=== PATIENT | female | born 2000 | race Caucasian/White ===

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

== ENCOUNTER 2022-01-06 13:15 | Outpatient (REF) | payer BC, SELFPAY ==
[2022-01-07 15:19] LABS: Chlamydia Result Negative (Negative); GC Result Negative (Negative)
== END 2022-01-06 13:16 | disposition home or self-care (01) ==
LOC: LBN 13:15
PROVIDERS: PCP Nurse Practitioner Family; Visit Provider Nurse Practitioner Women's Health
DX: Z11.3 Encounter for screening for infections with a predominantly sexual mode of transmission (principal)
CPT/HCPCS: 87491; 87591

== ENCOUNTER 2022-01-30 17:01 | Outpatient (REF) | payer BC, SELFPAY | END 2022-01-30 17:02 | disposition home or self-care (01) | LOC: LBN 17:01 | PROVIDERS: Visit Provider Physician Assistant | DX: J02.9 Acute pharyngitis, unspecified (principal) | CPT/HCPCS: U0003; 87070 ==

== ENCOUNTER 2022-02-02 12:39 | Outpatient (REF) | payer BC, SELFPAY ==
[2022-02-04 12:10] LABS: COVID-19 RT-PCR UVMMC Result Negative (Negative)
== END 2022-02-02 12:40 | disposition home or self-care (01) ==
LOC: LBN 12:39
PROVIDERS: Visit Provider Physician Assistant
DX: Z20.822 Contact with and (suspected) exposure to COVID-19 (principal)
CPT/HCPCS: U0003

== ENCOUNTER 2022-09-22 02:44 | Outpatient (CLI) | payer OTHER, SELFPAY ==
[2022-09-22 14:44] LABS: Panorama Kit Sent via Fed Ex
[2022-09-22 15:13] LABS: Abs Immature Grans 0.04 10^3/uL (0.0-0.06); Absolute Basophil Count 0.06 10^3/uL (0.0-0.2); Absolute Lymphocyte Count 2.93 10^3/uL (1.2-3.4); Absolute Monocyte Count 0.54 10^3/uL (0.1-0.8); Basophils % 0.6; HCT 37.6 % (36.0-46.0); HGB 12.5 g/dL (11.2-15.7); Immature Grans % 0.4; Lymphocytes % 29.7; MCH 29.7 pg (27.0-33.0); MCHC 33.2 % (32.0-36.0); MCV 89 fL (80-95); MPV 11.1 fL (8.0-11.0); Monocytes % 5.5; Neutrophils % 60.8; Platelet Count 240 10^3/uL (130-400); RBC 4.21 10^6/uL (3.93-5.22); RDW 12.7 % (11.7-14.6); RDW-SD 41.6 fL; WBC 9.87 10^3/uL (4.4-10.8)
[2022-09-24 10:33] LABS: Hepatitis B Surface Ag Negative (Negative)
[2022-09-24 11:10] LABS: Varicella IgG Antibody Positive (See Note)
[2022-09-24 11:12] LABS: Rubella IgG Ab (UVM) Positive (See Note)
[2022-09-24 11:14] LABS: HIV-1/2 Ag & Ab Screen Negative (Negative)
[2022-09-24 11:40] LABS: Hepatitis C Ab w Rflx HCV PCR Negative (Negative)
[2022-09-26 14:41] LABS: Syphilis IgG w/Reflex Nonreactive (Nonreactive)
== END 2022-09-22 02:45 | disposition home or self-care (01) ==
LOC: LBO 02:44
PROVIDERS: Visit Provider Advanced Practice Midwife
DX: Z34.81 Encounter for supervision of other normal pregnancy, first trimester (principal)
CPT/HCPCS: 36415; 86787; 86803; 86850; 86900; 86901; 87340; 87389; 85025; 86762; 86780

== ENCOUNTER 2022-09-22 15:39 | Outpatient (REF) | payer OTHER, SELFPAY ==
[2022-09-22 19:26] LABS: *AMPHETAMINES SCREEN URINE Negative (Negative); *BARBITURATES SCREEN URINE Negative (Negative); *BENZODIAZEPINES SCREEN URINE Negative (Negative); Cannabinoids THC Positive (Negative); Cocaine Screen,Urine Negative (Negative); METHADONE URINE SCREEN Negative (Negative); OPIATES URINE SCREEN Negative (Negative)
[2022-09-22 19:32] LABS: Tricyclic Antidepressants Negative (Negative)
[2022-09-24 12:10] LABS: Chlamydia Result Negative (Negative); GC Result Negative (Negative)
[2022-10-01 14:21] LABS: Buprenorphine Negative ng/mL (Cutoff: 5.0); Norbuprenorphine Negative ng/mL (Cutoff: 2.5)
== END 2022-09-22 15:40 | disposition home or self-care (01) ==
LOC: LBN 15:39
PROVIDERS: Visit Provider Advanced Practice Midwife
DX: Z34.91 Encounter for supervision of normal pregnancy, unspecified, first trimester (principal); Z3A.10 10 weeks gestation of pregnancy
CPT/HCPCS: 80307; 80348; 87491; 87591; 87086

== ENCOUNTER 2022-11-15 11:50 | Emergency (ER) | payer OTHER, SELFPAY ==
[2022-11-15 11:55] VITALS: BP 104/64; PULSE 66; RESP 22; TEMP 37.1; O2SAT 99
[2022-11-15 13:35] LABS: Bilirubin Negative (Negative); Blood Negative (Negative); Clarity Clear (Clear); Glucose Negative (Negative); Ketones Negative (Negative); Leukocyte Esterase Negative (Negative); Nitrite Negative (Negative); Urobilinogen 0.2 mg/dL (Up to 0.2)
[2022-11-15] MEDS: Famotidine 20 MG/2 ML VIAL IVP (13:41)
[2022-11-15] MEDS: Lactated Ringers 1,000 ML 1000 ML IV (13:41)
[2022-11-15 13:47] LABS: Abs Immature Grans 0.03 10^3/uL (0.0-0.06); Absolute Basophil Count 0.04 10^3/uL (0.0-0.2); Absolute Eosinophil Count 0.06 10^3/uL (0.0-0.7); Absolute Monocyte Count 0.44 10^3/uL (0.1-0.8); Absolute Neutrophil Count 6.99 10^3/uL (1.2-6.7); Basophils % 0.4; Eosinophils % 0.6; HCT 34.5 % (36.0-46.0); HGB 11.7 g/dL (11.2-15.7); Immature Grans % 0.3; Lymphocytes % 24.1; MCH 29.8 pg (27.0-33.0); MCHC 33.9 % (32.0-36.0); MCV 88 fL (80-95); MPV 10.8 fL (8.0-11.0); Monocytes % 4.4; Neutrophils % 70.2; Platelet Count 219 10^3/uL (130-400); RBC 3.92 10^6/uL (3.93-5.22); RDW 12.7 % (11.7-14.6); RDW-SD 40.8 fL; WBC 9.96 10^3/uL (4.4-10.8)
[2022-11-15 14:02] LABS: ALT 31 U/L (14-59); AST 22 U/L (15-37); Albumin 3.3 g/dL (3.4-5.0); Alkaline Phosphatase 51 U/L (46-116); Anion Gap 10.6 mmol/L (3-11); BUN 7 mg/dL (7-18); Bilirubin, Total 0.9 mg/dL (0.2-1.0); CO2 22.4 mmol/L (21.0-32.0); CREATININE 0.4 mg/dL (0.55-1.02); Calcium 8.9 mg/dL (8.5-10.1); Chloride 103 mmol/L (98-107); Estimated GFR 145.22 (mL/min/1.73m2); Glucose 82 mg/dL (74-106); Lipase 21 U/L (16-77); Potassium 3.5 mmol/L (3.5-5.1); Sodium 136 mmol/L (136-145); Total Protein 6.7 g/dL (6.4-8.2)
--- NOTE | 2022-11-15 14:49 | ED.GENADUL_ITS ---
Discharge Plan Disposition Patient Disposition: Home Discharge Details Clinical Impression: Acute epigastric pain Primary Care Provider: None,None ED Provider: Feli Ngo Home Meds and New Rx's Prescriptions: New metronidazole 1 % gel 1 applic topical DAILY Qty: 60 0RF Rx Instructions: 1 applicator nightly Continued prenat.vits,elyse,[id number]-ablj-qqddm Tablet 1 tab PO DAILY albuterol sulfate [Proventil HFA] 90 mcg/actuation HFA aerosol inhaler 2 puff inhalation Q6H PRN (Reason: shortness of breath or wheezing) Qty: 8.5 0RF pantoprazole [Protonix] 40 mg tablet,delayed release (DR/EC) 40 mg PO DAILY Qty: 30 8RF Discontinued metronidazole 500 mg tablet 500 mg PO BID 7 Days Qty: 14 0RF Discharge Instructions Instructions: Abdominal Pain (ED) Additional Instructions: Stop taking the oral Flagyl and switch to vaginal Flagyl for the next 5 days Take Pepcid daily, stay away from spicy and acidic foods for the next several days, this is [id number] Please return earlier should you have new or worsening complaints Discharge Data Discharge Date/Time-TO BE ENTERED AT DEPARTURE: 11/15/22 15:10 Medical Decision Making 22-year-old female presenting with report of epigastric pain, no right upper quadrant tenderness, labs reassuring including lipase heart rate 149, no vaginal bleeding, stable vitals urinalysis within normal limits Patient given dose of Pepcid, her pain has abated completely I suspect she is having side effects from the Flagyl that she is taking, will switch to vaginal Flagyl, I did confirm this is safe for We will discontinue the oral Flagyl and give patient several days of Pepcid She encouraged to follow-up with her primary care physician in 1 to 2 days for reassessment I do not suspect this is a issue, however she is encouraged to return immediately should she have persistent or worsening symptoms She discharged home in stable condition with stable vital HPI General Date/Time Provider Initiated Documentation: 11/15/22 13:05 . HPI Narrative: This 22-year-old female presents 19 weeks with report of epigastric pain epigastric pain that started at work yesterday. She was given Tums by charge nurse states she actually had some mild improvement in pain. She states the next morning she awoke and the pain had returned. She does report that she was started on Flagyl approximately 2 days ago secondary to suspected bacterial vaginosis. She also had spicy food yesterday per patient. She denies any alcohol use. They are only medication aside from the Flagyl as a vitamin per patient. Related Data Home Medications Medication Instructions Recorded Confirmed albuterol sulfate 90 mcg/actuation 2 puff inhalation Q6H PRN 01/30/22 11/15/22 aerosol inhaler (Proventil HFA) shortness of breath or wheezing #8.5 grams prenat.vits,elyse,izd-lzbq-edhyd 1 tab PO DAILY 08/16/22 11/15/22 metronidazole 1 % topical gel 1 applic topical DAILY #60 grams 11/15/22 pantoprazole 40 mg tablet,delayed 40 mg PO DAILY #30 tabs 11/15/22 11/15/22 release (Protonix) Previous Rx's Medication Instructions Recorded albuterol sulfate 90 mcg/actuation 2 puff inhalation Q6H PRN 01/30/22 aerosol inhaler (Proventil HFA) shortness of breath or wheezing #8.5 grams metronidazole 1 % topical gel 1 applic topical DAILY #60 grams 11/15/22 pantoprazole 40 mg tablet,delayed 40 mg PO DAILY #30 tabs 11/15/22 release (Protonix) Allergies Allergy/AdvReac Type Severity Reaction Status Date / Time poison chidi extract Allergy Severe Topical Verified 11/15/22 12:00 Irritation sodium sulfite Allergy Intermediate Verified 11/15/22 12:00 General Stated Complaint: GenMedical JAIDA: 3 PFSH All Active Problems (Updated 11/15/22 @ 14:31 by DEEJAY Das) Acute epigastric pain (Acute) [place] teeth extracted (Acute) (Acute) Cannabis use disorder, moderate, dependence (Acute) Anxiety (Chronic) Dyslexia (Acute 02/18/15) HAS IEP Medical History (Updated 11/15/22 @ 14:31 by DEEJAY Das) Depression Dyslexia Family History (Updated 09/22/22 @ 13:28 by Valerie Maria CNM) Mother Epilepsy Maternal Uncle Vasculitis Brother Vasculitis Social History Smoking/Tobacco Use Status: Never Smoking risk assessment performed?: Yes Pets and animals: Yes Pets and animals: cat(s) and dog(s) Sexually active: No Current gender identity: female Female Reproductive History Menstrual Age of Menarche: 15 control method: none History History 1 Para 0 Hx # Term Pregnancies 0 Multiple births 0 Hx # Pregnancies 0 Ectopic pregnancies 0 AB induced 0 Hx Number of Living Children 0 AB spontaneous 0 Exam Narrative Exam Narrative: This 22-year-old female presents alert, oriented, no acute distress, no scleral icterus, lungs clear to auscultation, cardiac rate rhythm regular, mild epigastric tenderness, no right upper quadrant tenderness, no rebound or guarding, no skin discoloration, no lower abdominal tenderness, alert and oriented x4, no peripheral edema, neurovascularly intact Course Vital Signs Vital signs: Vital Signs Temperature 37.1 C 11/15/22 11:55 Pulse 66 11/15/22 11:55 Respiratory Rate 22 11/15/22 11:55 Blood Pressure 104/64 11/15/22 11:55 Pulse Oximetry 99 11/15/22 11:55 Temperature 37.1 C 11/15/22 11:55 Temperature Source Oral 11/15/22 11:55 Pulse 66 11/15/22 11:55 Respiratory Rate 22 11/15/22 11:55 Respiratory Effort Normal 11/15/22 12:01 Blood Pressure 104/64 11/15/22 11:55 Blood Pressure Position Sitting 11/15/22 11:55 Pulse Oximetry 99 11/15/22 11:55 Oxygen Delivery Method Room Air 11/15/22 11:55 Oxygen Flow Rate 0 11/15/22 11:55 Pain Level 7 11/15/22 11:55 Lab/Test Results Lab/Test Results: Laboratory Tests Range/Units 11/15/22 11/15/22 11/15/22 12:59 13:40 13:40 WBC (4.4-10.8) 10^3/uL 9.96 RBC (3.93-5.22) 10^6/uL 3.92 L Hgb (11.2-15.7) g/dL 11.7 Hct (36.0-46.0) % 34.5 L MCV (80-95) fL 88 MCH (27.0-33.0) pg 29.8 MCHC (32.0-36.0) % 33.9 RDW (11.7-14.6) % 12.7 Plt Count (130-400) 10^3/uL 219 MPV (8.0-11.0) fL 10.8 Immature Gran % 0.3 Neutrophils % 70.2 Lymphocytes % 24.1 Monocytes % 4.4 Eosinophils % 0.6 Basophils % 0.4 Nucleated RBC % (0.0-0.3) % 0.0 Absolute Neutrophils (1.2-6.7) 10^3/uL 6.99 H Absolute Lymphocytes (1.2-3.4) 10^3/uL 2.40 Absolute Monocytes (0.1-0.8) 10^3/uL 0.44 Absolute Eosinophils (0.0-0.7) 10^3/uL 0.06 Absolute Basophils (0.0-0.2) 10^3/uL 0.04 Sodium (136-145) mmol/L 136 Potassium (3.5-5.1) mmol/L 3.5 Chloride (98-107) mmol/L 103 Carbon Dioxide (21.0-32.0) mmol/L 22.4 Anion Gap (3-11) mmol/L 10.6 BUN (7-18) mg/dL 7 Creatinine (0.55-1.02) mg/dL 0.4 L Est GFR (CKD-EPI 2020) (mL/min/1.73m2) 145.22 Glucose (74-106) mg/dL 82 Calcium (8.5-10.1) mg/dL 8.9 Total Bilirubin (0.2-1.0) mg/dL 0.9 AST (15-37) U/L 22 ALT (14-59) U/L 31 Alkaline Phosphatase (46-116) U/L 51 Total Protein (6.4-8.2) g/dL 6.7 Albumin (3.4-5.0) g/dL 3.3 L Lipase (16-77) U/L 21 Urine Color (Yellow) Yellow Urine Clarity (Clear) Clear Urine pH (5-8) 6.0 Ur Specific [place] (1.005-1.025) 1.020 Urine Protein (Negative) mg/dL Negative Urine Ketones (Negative) mg/dL Negative Urine Blood (Negative) Negative Urine Nitrite (Negative) Negative Urine Bilirubin (Negative) Negative Urine Urobilinogen (Up to 0.2) mg/dL 0.2 Ur Leukocyte Esterase (Negative) Negative Urine Glucose (Negative) mg/dL Negative
== END 2022-11-15 15:10 | disposition home or self-care (01) ==
PROVIDERS: Emergency Provider Physician Assistant
DX: O26.893 Other specified pregnancy related conditions, third trimester (principal); R10.13 Epigastric pain; Z3A.19 19 weeks gestation of pregnancy
CPT/HCPCS: 80053; 83690; 96360; 96361; 99284; 81003; 85025; 99283

== ENCOUNTER → 2022-11-17 01:54 | Outpatient (CLI) | payer OTHER, SELFPAY ==
--- NOTE | 2022-11-17 06:45 | DI.US_ITS ---
Exam(s) US OB 2-3 TRIMESTER W MOD EXAM: US OB 2-3 TRIMESTER W MOD CLINICAL HISTORY: . TECHNIQUE: Transabdominal obstetrical ultrasound performed. COMPARISON: No exams were available for comparison FINDINGS: Number of fetuses: 1 position: VARIED heart rate: 142bpm Placental location: There is a grade 1 anterior placenta. No evidence of previa. Amniotic fluid index: Amount of fluid is within normal limits. BIOMETRIC DATA: BPD: 4.58cm, 19weeks 6days HC: 17.17cm, 19weeks 5days AC: 13.8cm, 19weeks 2days FL: 2.99cm, 19weeks 2days Cisterna magna: 3.9mm Cerebellum: 1.61cm Lateral ventricle: 6.8 mm. EFW: 284.55g, 0.63lb, 45.9% Composite Age: 19weeks 4days RACHELLE: 04/09/2023 Heart Rate: 142bpm ANATOMICAL SURVEY: Four-chambered heart: Unremarkable. RVOT: Not well visualized on this examination. LVOT: Unremarkable. Left-sided stomach: Unremarkable. urinary bladder: Unremarkable. Bilateral kidneys: Unremarkable. Three-vessel cord: Unremarkable. Cord insertion: Unremarkable. Posterior fossa: Unremarkable. ventricles: Unremarkable. nose/lips: Not well visualized on this examination. Palate: Unremarkable. spine: Unremarkable. Two arms and two legs: Unremarkable. IMPRESSION: 1. Single live intrauterine gestation as above. 2. The nose and lips and right ventricular outflow tract were not ideally visualized on this ex amination. The patient should return for completion of the anatomic survey. 3. The anatomic survey was otherwise unremarkable. DATA REPOSITORY:
== END ==
PROVIDERS: Visit Provider Advanced Practice Midwife
DX: Z34.92 Encounter for supervision of normal pregnancy, unspecified, second trimester (principal)
CPT/HCPCS: 76805

== ENCOUNTER 2023-01-11 02:15 | Outpatient (CLI) | payer OTHER, SELFPAY ==
[2023-01-11 14:05] LABS: HCT 33.5 % (36.0-46.0); HGB 11.7 g/dL (11.2-15.7); MCH 30.9 pg (27.0-33.0); MCHC 34.9 % (32.0-36.0); MCV 88 fL (80-95); MPV 10.8 fL (8.0-11.0); Platelet Count 220 10^3/uL (130-400); RBC 3.79 10^6/uL (3.93-5.22); RDW 12.5 % (11.7-14.6); RDW-SD 40.6 fL; WBC 10.23 10^3/uL (4.4-10.8)
[2023-01-11 14:58] LABS: Glucose,1 Hr (Glucola) 107 mg/dL (80-140)
== END 2023-01-11 02:16 | disposition home or self-care (01) ==
LOC: LBO 02:16
PROVIDERS: Visit Provider Advanced Practice Midwife
DX: Z34.92 Encounter for supervision of normal pregnancy, unspecified, second trimester (principal); Z3A.27 27 weeks gestation of pregnancy
CPT/HCPCS: 36415; 82950; 85027

== ENCOUNTER 2023-01-11 13:46 | Outpatient (REF) | payer OTHER, SELFPAY ==
[2023-01-11 16:39] LABS: *AMPHETAMINES SCREEN URINE Negative (Negative); *BARBITURATES SCREEN URINE Negative (Negative); *BENZODIAZEPINES SCREEN URINE Negative (Negative); Cannabinoids THC Negative (Negative); Cocaine Screen,Urine Negative (Negative); METHADONE URINE SCREEN Negative (Negative); OPIATES URINE SCREEN Negative (Negative)
[2023-01-11 16:40] LABS: Tricyclic Antidepressants Negative (Negative)
== END 2023-01-11 13:47 | disposition home or self-care (01) ==
LOC: LBN 13:46
PROVIDERS: Visit Provider Advanced Practice Midwife
DX: F12.20 Cannabis dependence, uncomplicated (principal); O99.322 Drug use complicating pregnancy, second trimester
CPT/HCPCS: 80307

== ENCOUNTER 2023-02-12 14:31 | Outpatient (CLI) | payer OTHER, SELFPAY ==
[2023-02-12 15:10] VITALS: BP 106/58; PULSE 78
[2023-02-12 15:23] VITALS: BP 106/58; PULSE 78; RESP 20; TEMP 36.7
--- NOTE | 2023-02-12 15:52 | W.OBNST ---
Date of service: 02/12/23 Time of Service: 15:40 NST Evaluation Reason for NST Reasons for Nonstress Test: OTHER, SEE COMMENT Reason for NST Other: Rapid heartrart with dizzyness Gestational Age Gestational Age in Weeks and Days: 31 Weeks and 5Days Test and Monitor Explained Test/Monitor Explained: Test Explained and Monitor Explained Vital Signs Blood Pressure: 106/58 Pulse: 78 Temperature: 98.1 F NST Information Date on Monitor: 02/12/23 Time on Monitor: 14:50 Date off Monitor: 02/12/23 Time off Monitor: 15:45 Total Time on Monitor: 55 NST Interventions: PO Hydration NST Evaluation Patient States Movement: Present FHR Baseline: 120 Variability: Moderate 6-25 bpm Accelerations: 10x10 Decelerations: None NST Results: Reactive Note Ultrasound Done: N/A. NST Note Note: NST is reactive and reassuring. Patient is feeling better. Discharged home NST Reviewed and Verified by: Valerie Choudhury
[2023-02-12 15:54] VITALS: BP 106/58; PULSE 78; TEMP 36.7
== END 2023-02-12 16:00 ==
PROVIDERS: Visit Provider Advanced Practice Midwife
DX: O99.891 Other specified diseases and conditions complicating pregnancy (principal); O26.893 Other specified pregnancy related conditions, third trimester; R00.0 Tachycardia, unspecified; Z3A.31 31 weeks gestation of pregnancy; R42 Dizziness and giddiness
CPT/HCPCS: 59025

== ENCOUNTER 2023-03-16 16:23 | Outpatient (REF) | payer OTHER, SELFPAY ==
[2023-03-16 18:17] LABS: *AMPHETAMINES SCREEN URINE Negative (Negative); *BARBITURATES SCREEN URINE Negative (Negative); *BENZODIAZEPINES SCREEN URINE Negative (Negative); Cannabinoids THC Negative (Negative); Cocaine Screen,Urine Negative (Negative); METHADONE URINE SCREEN Negative (Negative); OPIATES URINE SCREEN Negative (Negative)
[2023-03-16 18:18] LABS: Tricyclic Antidepressants Negative (Negative)
[2023-03-25 17:06] LABS: Buprenorphine Negative ng/mL (Cutoff: 5.0)
== END 2023-03-16 16:24 | disposition home or self-care (01) ==
LOC: LBN 16:23
PROVIDERS: PCP Advanced Practice Midwife; Visit Provider Advanced Practice Midwife
DX: Z34.93 Encounter for supervision of normal pregnancy, unspecified, third trimester (principal); Z36.85 Encounter for antenatal screening for Streptococcus B; Z3A.36 36 weeks gestation of pregnancy
CPT/HCPCS: 80307; 80348; 87081

== ENCOUNTER 2023-03-28 03:56 | Inpatient (IN) | payer OTHER, SELFPAY ==
[2023-03-28] VITALS (113 sets, daily range): BP systolic 91–137; BP diastolic 50–78; PULSE 61–93; RESP 16–20; TEMP 36.6–37; O2SAT 94–100; BMI 34.4
--- NOTE | 2023-03-28 03:57 | W.PM.OBHPL1 ---
Date of service: 03/28/23 Time of Service: 03:57 Assessment and Plan Assessment and plan (1) Normal labor: Status: Acute Assessment and plan: 1. NST done 2. ROM plus obtained, positive 3. Admit in labor 4. CBC and type and screen 5. IV access as patient is considering epidural, will try shower and nitrous first 6. Expect NVD. KH OB-HPI Labor/Delivery History of Present Illness Reason for Visit: term labor Chief Complaint: Uterine Contractions; Suspected Rupture of Membranes (clear fluid leaking vaginally) , Associated Signs and Symptoms of Suspected ROM: clear fluid leaking vaginally. RACHELLE Calculator Estimated Delivery Date Method Current WG Current Estimate 04/11/23 LMP (Certain) 38w 0d Other Estimates 04/16/23 Ultrasound #1 37w 2d History of Present Expected Delivery Route/Plan - CNM FOB - Shamar Amato (first child) [place] Planning epidural GBS negative Specific Issues/Plan 1. Anxiety- no treatment currently 2. Genetic testing - declines CF/SMA and AFP testing, panorama=low risk female 3. THC+ at initial visit, pt stopped use @ 13 wks, repeat 28 weeks THC Neg, repeat 36 wks=neg 4. Heartburn unrelieved with TUMS, protonix escribed. 5. Limited views on US - additional imaging 12/14 completed 6. excessive weight gain during : >60 lbs Assessment: History Reviewed & Current Review of Systems All systems reviewed & are unremarkable except as noted in HPI and below Genitourinary Genitourinary: Reports other (clear fluid noted from vagina with VE) Musculoskeletal Comments: uterine contractions began 0130. SROM at 0100 PFS All Active Problems (Updated 03/28/23 @ 04:03 by Valerie Choudhury CNM) Normal labor (Acute) Other specified counseling (Acute) Has health insurance with inadequate coverage of health expenses (Acute) Is on parent's health insurance, high deductible, may qualify for [place] Medicaid. Bacterial vaginosis in (Acute) [place] teeth extracted (Acute) (Acute) Cannabis use disorder, moderate, dependence (Acute) Anxiety (Chronic) Dyslexia (Acute 02/18/15) HAS IEP Medical History (Updated 03/28/23 @ 04:03 by Valerie Choudhury CNM) Depression Dyslexia Family History (Updated 09/22/22 @ 13:28 by Valerie Maria CNM) Mother Epilepsy Maternal Uncle Vasculitis Brother Vasculitis Social History Smoking/Tobacco Use Status: Never Smoking risk assessment performed?: Yes Pets and animals: Yes Pets and animals: cat(s) and dog(s) Sexually active: No Current gender identity: female Female Reproductive History Menstrual Age of Menarche: 15 control method: none History History 1 Para 0 Hx # Term Pregnancies 0 Multiple births 0 Hx # Pregnancies 0 Ectopic pregnancies 0 AB induced 0 Hx Number of Living Children 0 AB spontaneous 0 Meds Allergies and Home Medications Allergies Allergy/AdvReac Type Severity Reaction Status Date / Time poison chidi extract Allergy Severe Topical Verified 03/24/23 13:09 Irritation sodium sulfite Allergy Intermediate Verified 03/24/23 13:09 Home Medications Medication Instructions Recorded Confirmed Type albuterol sulfate 90 mcg/actuation 2 puff inhalation Q6H PRN 01/30/22 03/24/23 Rx aerosol inhaler (Proventil HFA) shortness of breath or wheezing #8.5 grams prenat.vits,elyse,cll-apze-fbjue 1 tab PO DAILY 08/16/22 03/24/23 History pantoprazole 40 mg tablet,delayed 40 mg PO DAILY #30 tabs 11/15/22 03/24/23 Rx release (Protonix) ferrous sulfate 325 mg (65 mg 325 mg PO Q OTHER DAY #90 tabs 03/16/23 03/24/23 Rx iron) tablet Exam Physical Exam Vital signs: Temp Pulse BP 98.5 F 80 119/77 03/28/23 03:23 03/28/23 03:23 03/28/23 03:23 Vital Signs Reviewed: Yes Constitutional Constitutional: no acute distress (working well with contractions) and obese Detailed Labor and Delivery Exam Dilation: 4 Effacement (%): 90 station: -1 Cervix position: posterior Consistency: soft Carrera Score: Cervical Points Exam 0 1 2 3 Dilation Closed 1-2cm 3-4 cm 5-6cm Effacement 0-30% 40-50% 60-70% 80% Consistency Firm Medium Soft Station -3 -2 -1,0 +1,+2 Position Posterior Mid Anterior CARRERA Score(Cervical Ripeness Score): 9 Amniotic Membrane Status: Ruptured (SROM 03/28/23 at 0100 clear fluid) Monitor Mode: External Contraction Frequency(min): 3-4 Contraction Duration(sec): 40-60 Contraction Intensity: Mild/Moderate Fetus A Heart Rate Baseline: 130 Monitor Accelerations: 15 X 15 Monitor Decelerations: None Variability: Moderate (6-25 BPM) Categories: Category I Est. Weight: 7 lb Date of Membrane Rupture: 03/28/23 Time of Membrane Rupture: 01:00 HEENT Exam HEENT Exam: Normal Neck Exam Neck Exam: Normal (on visual exam) Chest/Brest/Axilla Exam Chest Exam: Normal Breast Exam Breast Exam: Not Done Respiratory Exam Respiratory Exam: Normal Cardiovascular Exam Cardiovascular Exam: Normal Abdominal Exam Abdominal Exam: Normal (EFW 7lb, position JULIA) Rectal Exam Rectal Exam: Not Done Exam Exam: Normal (clear fluid from vagina) Extremities Exam Extremities Exam: Normal Back/Spine/Pelvis Exam Back Exam: Normal Pelvis Adequate: Yes Skin Exam Skin Exam: Normal Neurological Exam Neurological Exam: Normal Psychiatric Exam Psychiatric Exam: Normal Results Results Group Beta Strep: Negative Blood Type: A+ Rubella Status: Immune Varicella Immunity: Immune Lab Results: HIV neg, Hep B&C neg, Syphilis neg, GC CT neg, cfDNA low risk female, 1 hour 107. Risk Assessment Risk for Shoulder Dystocia Historical/Initial OB: NEGATIVE FOR: Pelvic Abnormality, Pre- BMI>30, Previous Shoulder Dystocia or Previous Macrosomia 36 Weeks: POSITIVE FOR: Maternal Weight Gain>40lbs; NEGATIVE FOR: Current Gestational DM or EFW>4500gms 40 Weeks: POSTIVE FOR: Maternal Weight Gain >40lb; NEGATIVE FOR: EFW> 4500 gms or Post Dates Delivery Plan @ 40 wks: NVD expected, EFW WNL, 64lb weight gain in Risk for Pre-Eclampsia Yes, if one or more: NEGATIVE FOR: Hx Pre-E/Gest HTN, Chronic HTN, Multiple Gestation, Pre-gestational DM, Renal Disease, Systemic Lupus or APA Syndrome Yes, if 2 or more: POSITIVE FOR: Nulliparity; NEGATIVE FOR: Age>= 35 yrs, >10yr btwn pregnancies, BMI>30, ethinicty, Mother/Sister w/ Pre-E or Previous IUGR Risk for Post- Hemorrhage Initial: NEGATIVE FOR: Multiple Gestation, Previous PPH, Known Clotting Deficiency, Grand Multiparity or Anticoagulation 36 Weeks: NEGATIVE FOR: Anemia, hgb<10, Low platelets(thrombocytopenia), Gestational HTN or Pre-E, Polyhydraminios or EFW>4500gms 40 Weeks: NEGATIVE FOR: Anemia, hgb<10, Low platelets (thrombocytopenia), Gestation HTN or Pre-E, Polyhydraminios or EFW>4500gms Counseled re: Active Management: Yes Date/Initials: 03/28/23 KH Risks Reviewed Risks Reviewed Upon Admission: Yes (mod risk for shoulder dystocia due to 64 lb weight gain in , EFW 7)
[2023-03-28 04:00] LABS: ROM Plus Positive
--- NOTE | 2023-03-28 04:13 | W.OBNST ---
Date of service: 03/28/23 Time of Service: 04:13 NST Evaluation Reason for NST Reasons for Nonstress Test: OTHER, SEE COMMENT Reason for NST Other: Ruptured membranes Gestational Age Gestational Age in Weeks and Days: 38 Weeks and 0Days Test and Monitor Explained Test/Monitor Explained: Test Explained, Monitor Explained and Patient Verbalized Understanding Vital Signs Blood Pressure: 119/77 Pulse: 80 Temperature: 98.5 F Urine Results Urine Protein: Negative Urine Ketones: Negative Urine Glucose: Negative Urine Blood: Negative NST Information Date on Monitor: 03/28/23 Time on Monitor: 03:12 Date off Monitor: 03/28/23 Time off Monitor: 03:54 Total Time on Monitor: 42 NST Interventions: PO Hydration Contraction Frequency: 2-4 NST Evaluation Patient States Movement: Present FHR Baseline: 130 Variability: Moderate 6-25 bpm Accelerations: 15x15 Decelerations: None NST Results: Reactive Note Ultrasound Done: N/A. NST Note Note: NST is reactive and reassuring. ROM + is positive. Admit in early labor, expect NVD. GENE NST Reviewed and Verified by: Valerie Choudhury
[2023-03-28 04:18] LABS: HGB 12.5 g/dL (11.2-15.7); MCH 29.8 pg (27.0-33.0); MCHC 33.8 % (32.0-36.0); MCV 88 fL (80-95); MPV 12.6 fL (8.0-11.0); Platelet Count 224 10^3/uL (130-400); RBC 4.19 10^6/uL (3.93-5.22); RDW 12.5 % (11.7-14.6); RDW-SD 40.7 fL; WBC 11.47 10^3/uL (4.4-10.8)
[2023-03-28] MEDS: Lactated Ringers 1,000 ML 125 ML IV (06:14)
[2023-03-28] MEDS: FentaNYL/ROPIvacaine 2 mcg/ml and 0.1% 200 ML CADD Cassette EP (06:14)
--- NOTE | 2023-03-28 06:20 | ANES.NEUR_ITS ---
Epidural/Spinal Catheter Date Performed: 03/28/23 Procedure Start: 05:30 Procedure Stop: 06:10 Requesting Provider: Valerie Choudhury Procedure Location: Obstetrics Reason Performed: Labor Epidural Standard Monitors Applied: ECG, Blood Pressure, SpO2 and See EMR for corresponding vital signs Patient Position: Sitting Sedation Given (Indicate Dose Given): No Sedation given Patient Mental Status: Awake Sterility: Hand Hygiene, Surgical Cap, Surgical Mask, Sterile Gloves, Sterile Drape/Sheet, Eye Protection and Chlorhexidine Procedure Location: L3-L4 Interspace Epidural Needle: Tuohy 18 Gauge Needle Length: 3.5 Inch Needle Approach: Midline Epidural Procedure: Skin Prepped, Sterile Drape Placed, 1% Lidocaine to skin and subcutaneous tissue with 25G needle, Tuohy Needle placed, GISSELLE to Saline Used, Epidural Catheter Placed, Negative Heme and Negative CSF Flow Catheter Placed?: Catheter Placed Test Dose (Indicate Dose Given): 3ml 1.5% Lidocaine with 1:200K Epinephrine Given and Negative Test Dose Loss of Resistance Depth (cm): 5 Catheter depth at skin (cm): 12 Dressing: [place] Dressing Placed, Mastisol Used and Dressing reinforced with Tape Epidural P rovider Bolus (Indicate Dose Given): Total Ropivacaine 0.1% with Fentanyl 2mcg/ml Given from pump. (ml) Dose:: 7cc Additives (Indicate Dose Given ): None Infusion Medication: Medication Infusion Began Medication Infusion: Ropivacaine 0.1% with Fentanyl 2mcg/ml Maintenance Infusion Rate (ml/hour): 10 PCEA Bolus Dose (ml): 5 Post Procedure Pain score (0-10): 1 Block Level: T7 Paresthesia: None Ultrasound: Used to les site Number of Attempts (See previous attempts in note section): 1 Procedure Tolerated: No Complications and Patient tolerated well Procedure Outcome: Successful Performed By: Guru Helms
--- NOTE | 2023-03-28 06:26 | PGE_ITS ---
Date of service: 03/28/23 Time of Service: 06:26 Pelvic Exam Comments: VE deferred Contractions Monitor Mode: External Contraction Frequency(min): 2-4 Contraction Duration(sec): 50-70 Intensity: Moderate/Strong Fetus A Monitor: External (US) Heart Rate Baseline: 125 Variability: Moderate (6-25 BPM) Categories: Category I Accelerations: 15 X 15 Decelerations: None Assessment and Plan Assessment and plan (1) Normal labor: Status: Acute Assessment and plan: 1. Epidural is in place and becoming very effective for patient 2. Will encourage sleep for 2 hours before next assessment unless otherwise indicated by Maternal status. 3. I have reviewed with Rose the use of pitocin for augmentation (as well as risks and benefits) if contractions space out and become less effective. She agrees to this if needed. 4. Continue to expect NVD. KH Objective Abnormal lab results 03/28/23 Range/Units 04:06 WBC 11.47 H (4.4-10.8) 10^3/uL MPV 12.6 H (8.0-11.0) fL Temp Pulse BP Pulse Ox 98.3 F 93 H 107/61 97 03/28/23 04:45 03/28/23 06:23 03/28/23 06:11 03/28/23 06:23 Laboratory Results WBC 11.47 10^3/uL (4.4-10.8) H 03/28/23 04:06 RBC 4.19 10^6/uL (3.93-5.22) 03/28/23 04:06 Hgb 12.5 g/dL (11.2-15.7) 03/28/23 04:06 Hct 37.0 % (36.0-46.0) 03/28/23 04:06 MCV 88 fL (80-95) 03/28/23 04:06 MCH 29.8 pg (27.0-33.0) 03/28/23 04:06 MCHC 33.8 % (32.0-36.0) 03/28/23 04:06 RDW 12.5 % (11.7-14.6) 03/28/23 04:06 Plt Count 224 10^3/uL (130-400) 03/28/23 04:06 MPV 12.6 fL (8.0-11.0) H 03/28/23 04:06 Membranes Rupture Positive 03/28/23 03:40 Patient ABO/Rh A Positive 03/28/23 04:06 Antibody Screen NEGATIVE 03/28/23 04:06 Vital Signs Reviewed: Yes Subjective Interval history since last seen: Roes had tried shower and nitrous without adequate relief. She requested epidural and DEVELOPMENTAL TRAINING COUNSELOR has now placed that and started her medication. She is much more comfortable and trying to rest. KH Results Hemoglobin/Hematocrit: Hgb 12.5 g/dL (11.2-15.7) 03/28/23 04:06 Hct 37.0 % (36.0-46.0) 03/28/23 04:06 Abnormal Lab Findings: Abnormal Labs 03/28/23 04:06 WBC 11.47 H MPV 12.6 H
--- NOTE | 2023-03-28 08:19 | W.PM.OBNL1 ---
Date of service: 03/28/23 Time of Service: 08:19 Pelvic Exam Dilation: 6 Effacement (%): 90 station: -1 Cervix Position: mid Contractions Monitor Mode: External Contraction Frequency(min): 3-4 Contraction Duration(sec): 60-80 Intensity: Moderate/Strong Fetus A Monitor: External (US) Heart Rate Baseline: 125 Variability: Moderate (6-25 BPM) Categories: Category I Assessment and Plan Assessment and plan (1) Normal labor: Status: Acute Assessment and plan: 1. Will continue present management and reassess in 2 hours or prn. 2. Will augment with Pitocin if no cervical change at that time, patient verbalizes agreement. 3. Continue to expect NVD. KH Objective Abnormal lab results 03/28/23 Range/Units 04:06 WBC 11.47 H (4.4-10.8) 10^3/uL MPV 12.6 H (8.0-11.0) fL Temp Pulse Resp BP Pulse Ox 98.2 F 78 18 110/57 L 100 03/28/23 07:05 03/28/23 08:18 03/28/23 07:05 03/28/23 08:18 03/28/23 08:14 Laboratory Results WBC 11.47 10^3/uL (4.4-10.8) H 03/28/23 04:06 RBC 4.19 10^6/uL (3.93-5.22) 03/28/23 04:06 Hgb 12.5 g/dL (11.2-15.7) 03/28/23 04:06 Hct 37.0 % (36.0-46.0) 03/28/23 04:06 MCV 88 fL (80-95) 03/28/23 04:06 MCH 29.8 pg (27.0-33.0) 03/28/23 04:06 MCHC 33.8 % (32.0-36.0) 03/28/23 04:06 RDW 12.5 % (11.7-14.6) 03/28/23 04:06 Plt Count 224 10^3/uL (130-400) 03/28/23 04:06 MPV 12.6 fL (8.0-11.0) H 03/28/23 04:06 Membranes Rupture Positive 03/28/23 03:40 Patient ABO/Rh A Positive 03/28/23 04:06 Antibody Screen NEGATIVE 03/28/23 04:06 Subjective Interval history since last seen: Rose remains comfortable with her epidural. Denies rectal pressure. Reports some vaginal pressure. No vaginal bleeding. KH Results Hemoglobin/Hematocrit: Hgb 12.5 g/dL (11.2-15.7) 03/28/23 04:06 Hct 37.0 % (36.0-46.0) 03/28/23 04:06 Abnormal Lab Findings: Abnormal Labs 03/28/23 04:06 WBC 11.47 H MPV 12.6 H
[2023-03-28] MEDS: Oxytocin 10 UNITS/ML VIAL IM (10:25)
--- NOTE | 2023-03-28 10:37 | W.OBDELIVERY ---
Date of service: 03/28/23 Time of Service: 10:40 OB Labor/ Delivery Information Baby A Delivery Delivery Method: Spontaneaous Presentation: Vertex Vertex Position: Right Occipital Anterior Cord Description-Baby A: 3 Vessels and Clamped/Cut (after 2minutes 30 seconds delay) Amniotic Fluid: Clear Estimated Blood Loss: 150 Delivery Outcome: Liveborn Infant Complications: none Transferred: Remains with Mother Providers Nurse Senior Clinical Sas Programmer: Valerie Choudhury Tip Tester: Guru Helms Nurse: Josseline Monaco Nurse: Horacio Landaverde Labor/Delivery Information Steroids Given: None Reason Steroids Not Administered: N/A Group Beta Strep: Negative Antibiotics Administered: No Rubella Status: Immune Blood Type: A+ Varicella Immunity: Immune Maternal Complications: None Shoulder Dystocia: No Note: Rose and her fiance, Shamar, presented at approximately 0215 with reported SROM at 0100 and regular contractions beginning at 0130. She was 4cm on arrival and FHR tracing was CAT I. She requested epidural for pain management as nitrous and shower were not effective for her. She had good relief from epidural and was resting at 0400. She had increased discomfort and urge to push at 0945 and was 10 cm after reducing small cervical anterior lip. Second stage huddle was held. FHR in 120-130 and maternal VS were stable. Patient pushed very effectively on hands and knees and then side lying. She ultimately changed her position to a Adam position and delivered a live female over 1st degree vaginal introitus and right labial abrasions at 1020. After head delivered, Rose was able to reach down to help deliver her daughter onto her abdomen for skin to skin. Cord was clamped and cut by Shamar after 2min 30sec delay. Baby was vigorous with 8/9 at 1 and 5 minutes. Pitocin 10 units were given IM. Placenta delivered with maternal pushing effort at 1027, via Smith mechanism, intact. Fundus massaged and bi manual revealed firm lower uterine segment, no clots or free flow. EBL 150cc. sponge and instrument count are correct. Mother, Father, and baby girl Hartline are in satisfactory condition. Rose plans to breast feed her daughter. See completed delivery record for weight. Expect discharge in 24-48 hours. KH Stages of Labor Onset of Labor Date: 03/28/23 Onset of Labor Time: 01:30 Complete Dilatation Date: 03/28/23 Complete Dilatation Time: 09:45 Labor - Stage 1 Duration: 8 hours and 15 minutes ROM Baby A: 03/28/23 ROM Baby A: 01:00 ROM Total Time- Baby A: [id number] Infant Delivery Date-Baby A: 03/28/23 Delivery Time-Baby A: 10:20 Labor Stage 2 Duration: 35 minutes Placenta Delivery Date-Baby A: 03/28/23 Placenta Delivery Time-Baby A: 10:27 Labor-Stage 3 Duration: 7 minutes Total Length of Labor-Baby A: 8 hours and 50 minutes Placenta Cultured: No Placenta Status: Delivered Baby A Gender: Female Gestational Status: Term (39-41.6 wks) Gestational Age in Weeks/Days: 38 Weeks and 0 Days
[2023-03-28] MEDS: Acetaminophen 325 MG TAB 650 MG PO ×3 (11:24→23:46)
[2023-03-28] MEDS: Ibuprofen 600 MG TAB PO ×2 (11:25→19:21)
[2023-03-28] MEDS: Hamamelis Leaf/Glycerin 100 EACH BOX PR (11:25)
--- NOTE | 2023-03-28 13:56 | W.ANESPRE ---
General Info Date of Service Date Performed: 03/28/23 Height: 5 ft 5 in Weight: 93.894 kg Body Mass Index (BMI): 34.4 Meds Allergies and Home Medications Allergies Allergy/AdvReac Type Severity Reaction Status Date / Time poison chidi extract Allergy Severe Topical Verified 03/24/23 13:09 Irritation sodium sulfite Allergy Intermediate Verified 03/24/23 13:09 Home Medication Medication Instructions Recorded albuterol sulfate 90 mcg/actuation 2 puff inhalation Q6H PRN 01/30/22 aerosol inhaler (Proventil HFA) shortness of breath or wheezing #8.5 grams prenat.vits,elyse,[id number]-ksdyl 1 tab PO DAILY 08/16/22 pantoprazole 40 mg tablet,delayed 40 mg PO DAILY #30 tabs 11/15/22 release (Protonix) ferrous sulfate 325 mg (65 mg 325 mg PO Q OTHER DAY #90 tabs 03/16/23 iron) tablet Current Visit Medications: Current Medications Generic Name Dose Route Start Last Admin Trade Name Freq PRN Reason Stop Dose Admin Acetaminophen 650 mg 03/28/23 10:38 03/28/23 11:24 Acetaminophen 325 Mg Tab PO 650 mg Q4H PRN PRN Administration Albuterol Sulfate 2 puff 03/28/23 07:27 Albuterol Hfa 8 Gm 60 Puff Inh IH Q6H PRN PRN shortness of breath or wheezing Device 1 each 03/28/23 04:00 Inhaler, Assist Device MC DIRECTED [facility] Diphenhydramine HCl 25 mg 03/28/23 06:30 Diphenhydramine 50 Mg/Ml Vial IVP Q6H PRN PRN Persistent pruritis face/trunk Docusate Sodium 100 mg 03/28/23 10:38 Docusate Sodium 100 Mg Cap PO BID PRN PRN Ephedrine Sulfate 5 mg 03/28/23 06:30 Ephedrine 50 Mg/Ml Vial IVP DIRECTED PRN Fentanyl/Ropivacaine 200 ml 03/28/23 04:45 03/28/23 06:14 Fentanyl/Ropivacaine 2 Mcg/Ml And 0.1% 200 Ml Cadd Cassette EP 200 ml DIRECTED LEO Administration Fentanyl/Ropivacaine 200 ml 03/28/23 06:30 Fentanyl/Ropivacaine 2 Mcg/Ml And 0.1% 200 Ml Cadd [place] EP DIRECTED [facility] Ringer's Solution 1,000 mls @ 125 mls/hr 03/28/23 04:00 03/28/23 06:14 IV 125 mls/hr INFUSION LEO Administration Naloxone HCl 2 mg/ Sodium 500 mls @ 11.737 mls/hr 03/28/23 06:30 Chloride IV INFUSION PRN pruritis 0.5 MCG/KG/HR Nalbuphine HCl 5 mg/ Sodium 50.5 mls @ 100 mls/hr 03/28/23 06:30 Chloride IVPB Q3H PRN PRN Pruritis Oxytocin/Sodium Chloride 30 unit in 500 mls @ 95 mls/hr 03/28/23 10:45 Pitocin/Normal Saline IV INFUSION PRN uterine atony Protocol IV Miscellaneous Supplies 1 each 03/28/23 04:00 Iv Access IV DIRECTED [facility] Ibuprofen 600 mg 03/28/23 10:38 03/28/23 11:25 Ibuprofen 600 Mg Tab PO 600 mg Q6H PRN PRN Administration Magnesium Hydroxide 30 ml 03/28/23 10:38 Milk Of Magnesia 30 Ml Cup PO HS PRN PRN Misoprostol 400 mcg 03/28/23 10:38 Misoprostol 200 Mcg Tab SL 03/29/23 10:39 PRN PRN Naloxone HCl 0 mg 03/28/23 06:30 Naloxone 0.4 Mg/Ml Vial IVP DIRECTED PRN Ondansetron HCl 4 mg 03/28/23 06:30 Ondansetron 4 Mg/2 Ml Vial IVP Q6H PRN PRN Nausea Oxytocin 10 units 03/28/23 10:45 03/28/23 10:25 Oxytocin 10 Units/Ml Vial IM 03/27/24 10:44 10 units DIRECTED LEO Administration Sodium Chloride 0 ml 03/28/23 03:56 Normal Saline Flush 10 Ml Syr IVP PRN PRN Sodium Chloride 0 ml 03/28/23 08:30 Normal Saline Flush 10 Ml Syr IVP BID LEO Sodium Chloride 0 ml 03/28/23 03:56 Normal Saline 10 Ml Vial IJ DIRECTED PRN [place]/Glycerin 0 each 03/28/23 10:38 03/28/23 11:25 [place]/Glycerin 100 Each Box DE 1 box PRN PRN Administration Discomfort PFSH Active Problems Active Problems: Problem Status Onset Code Normal labor O80, Z37.9 Other specified counseling Z71.89 Has health insurance with inadequate coverage of health expenses Z59.89 Bacterial vaginosis in O23.599, B96.89 [place] teeth extracted K08.409 Z34.90 Cannabis use disorder, moderate, dependence F12.20 Anxiety F41.9 Dyslexia 02/18/15 R48.0 Medical History Medical History (Updated 03/28/23 @ 04:03 by Valerie Choudhury CNM) Depression Dyslexia Tobacco Smoking/Tobacco Use Status: Never Passive smoking exposure: No Alcohol Alcohol Intake: never Substance Use Details: Former THC user [place] History History 1 Para 0 Hx # Term Pregnancies 0 Multiple births 0 Hx # Pregnancies 0 Ectopic pregnancies 0 AB induced 0 Hx Number of Living Children 0 AB spontaneous 0 Vital Signs and Lab Results Vital Signs Most Recent Vital Signs in EMR: Most Recent Vital Signs Temp Pulse Resp BP Pulse Ox 36.6 C 82 20 100/65 100 03/28/23 08:59 03/28/23 11:56 03/28/23 09:00 03/28/23 11:56 03/28/23 08:39 Lab Results 03/28/23 04:06 Blood Type / Crossmatch: Patient ABO/Rh A Positive 03/28/23 Antibody Screen NEGATIVE 03/28/23 Complete Blood Count: White Blood Count 11.47 10^3/uL (4.4-10.8) H 03/28/23 04:06 Red Blood Count 4.19 10^6/uL (3.93-5.22) 03/28/23 04:06 Hemoglobin 12.5 g/dL (11.2-15.7) 03/28/23 04:06 Hematocrit 37.0 % (36.0-46.0) 03/28/23 04:06 Platelet Count 224 10^3/uL (130-400) 03/28/23 04:06 Complete Metabolic Panel: No Data to Display Liver Function Panel: No Data to Display Coagulation Panel: No Data to Display Cardiac Panel: No Data to Display Arterial Blood Gas: No Data to Display Venous Blood Gas: No Data to Display Pancreas Panel: No Data to Display Thyroid Panel: No Data to Display Infectious Disease: No Data to Display Blood Cultures: No Data to Display Toxicology Panel: Urine Amphetamines Screen Negative (Negative) 03/16/23 16:00 Urine Benzodiazepines Screen Negative (Negative) 03/16/23 16:00 Urine Barbiturates Screen Negative (Negative) 03/16/23 16:00 Urine Cocaine Screen Negative (Negative) 03/16/23 16:00 Urine Methadone Screen Negative (Negative) 03/16/23 16:00 Urine Opiates Screen Negative (Negative) 03/16/23 16:00 Ur Tricyclic Antidepressants Screen Negative (Negative) 03/16/23 16:00 Ur Tetrahydrocannabinol (THC) Scrn Negative (Negative) 03/16/23 16:00 Panel: No Data to Display Anesthesia Assessment and Plan Anesthesia History Personal History: No History of Anesthesia Complications Family History: No Family History of Anesthesia Complications Exercise Tolerance Exercise Tolerance: Metabolic Equivalents>4 Pertinent Negatives Pertinent Negatives: No Symptoms of GERD Cardiac & Pulmonary Exam Cardiac Exam: Normal S1/S2 Heart Sounds Pulmonary Exam: Clear Bilateral Breath Sounds Implantable Cardiac Device Does patient have a Pacemaker or an ICD?: No Airway Exam Known Difficult Airway: No Mallampati Class: 2 Mouth Opening: Normal (> 3cm) Thyromental Distance: Greater than 3 cm Neck Range of Motion: Full ROM Neck Circumference: Normal Teeth Condition: Normal Dentition ASA Classification ASA Score: ASA 2 Emergency Case?: No NPO Status NPO Status: NPO Clears >2 hours, Solids >8 hours Status Status: Not Relevant due to Medical History Anesthesia Plan Resuscitation Status: Full Code Anesthesia Technique: Labor Epidural Airway Planned: Natural Airway Monitors Used: Standard Monitors
--- NOTE | 2023-03-28 14:04 | W.ANESNEU ---
Epidural/Spinal Cath. Removal Date Performed: 03/28/23 Procedure Time: 13:30 Catheter Removal Type: Epidural Catheter Procedure Location: Obstetrics Patient Position: Sitting Catheter Removal Procedure: Dressing Removed, Catheter Removed without Resistance and Catheter Tip Intact Paresthesia: None Procedure Tolerated: No Complications and Patient tolerated well Procedure Outcome: Successful Performed By: Guru Helms Other (not listed above): OB RN removed Catheter
--- NOTE | 2023-03-28 14:06 | W.ANESPOSTOP ---
Postoperative Evaluation Date, Time and Location Date Performed: 03/28/23 Time Performed: 14:06 Patient Location: Obstetrics Vital Signs Most Recent Imported Vital Signs: Most Recent Vital Signs Temp Pulse Resp BP Pulse Ox 36.6 C 82 20 100/65 100 03/28/23 08:59 03/28/23 11:56 03/28/23 09:00 03/28/23 11:56 03/28/23 08:39 Pain Score Most Recent Pain Score: Most Recent Pain Score Pain Level [Generalized] 8 03/28/23 08:00 Assessment Mental Status: Awake (Alert & Oriented to Patient Baseline) Airway and Respiratory Function: Patent airway with normal (patient baseline) respiratory exam Cardiovascular Function: Hemodynamically Stable Hydration Status: Adequately Hydrated Nausea & Vomiting: No Nausea or Vomiting Pain: Pt. Denies Any Pain Peripheral Nerve Block: Patient did not receive a nerve block
[2023-03-29 00:12] VITALS: BP 127/60; PULSE 84; RESP 18
[2023-03-29] MEDS: Ibuprofen 600 MG TAB PO ×4 (01:52→19:30)
[2023-03-29] MEDS: Acetaminophen 325 MG TAB 650 MG PO ×3 (06:21→19:29)
[2023-03-29 07:22] VITALS: BP 106/66; PULSE 81; RESP 16; TEMP 37.2
[2023-03-29] MEDS: Docusate Sodium 100 MG CAP PO ×2 (08:01→19:30)
[2023-03-29 19:50] VITALS: BP 115/73; PULSE 73; TEMP 36.7
--- NOTE | 2023-03-29 23:28 | W.PM.OBPNV1 ---
Date of service: 03/29/23 Time of Service: 23:28 Assessment and Plan Assessment and plan (1) Term of female : Status: Acute Assessment and plan: Caring for baby independently. Pain is managed well with oral analgesics. Voiding without difficulty. well. A - stable mother and baby , Post day 1 P - Discharge to home tomorrow. Routine post care. [facility] Subjective Subjective Patient comments: No complaints and Pain well controlled baby status: Doing well feeding status: Exclusively breast feeding Exam Physical Exam Vital signs: Temp Pulse Resp BP Pulse Ox 98.1 F 73 16 115/73 100 03/29/23 19:50 03/29/23 19:50 03/29/23 07:22 03/29/23 19:50 03/28/23 08:39 Respiratory Exam Respiratory Exam: Normal Cardiovascular Exam Cardiovascular Exam: Normal Fundal Exam Fundus: Below Umbilicus and Firm Rectal Exam Rectal Exam: Normal Exam Patient deferred: external exam Extremities Exam Extremity Exam: Normal Skin Exam Skin Exam: Normal Psychiatric Exam Psychiatric Exam: Normal Results Hemoglobin/Hematocrit: Hgb 12.5 g/dL (11.2-15.7) 03/28/23 04:06 Hct 37.0 % (36.0-46.0) 03/28/23 04:06 Abnormal Lab Findings: Abnormal Labs 03/28/23 04:06 WBC 11.47 H MPV 12.6 H
[2023-03-30] MEDS: Ibuprofen 600 MG TAB PO ×3 (03:12→14:54)
[2023-03-30] MEDS: Acetaminophen 325 MG TAB 650 MG PO ×3 (03:12→14:55)
[2023-03-30 04:00] VITALS: BP 111/70; PULSE 82; TEMP 37
[2023-03-30] MEDS: Docusate Sodium 100 MG CAP PO (09:05)
--- NOTE | 2023-03-30 17:49 | W.PM.OBDISCH ---
Date of service: 03/30/23 Time of Service: 17:49 DS: Diagnosis Discharge Diagnosis (1) Term of female : Status: Acute Asessment and Plan: Caring for baby independently. Pain is managed well with oral analgesics. Voiding without difficulty. with some difficulty with latch. Baby is jaundiced and bilirubin is being monitored by Dr Eckert. A - stable mother and baby , Post day 2 P - Discharge today and will continue to board with her baby. Routine post instructions. [facility] Discharge Plan Disposition Patient Disposition: Home Condition: Good Discharge Details Reason For Visit: normal labor at term, SROM Admit Date/Time: 03/28/23 03:56 Admit Provider: Valerie Choudhury Attending Provider: Valerie Choudhury Primary Care Provider: Valerie Maria Home Meds and New Rx's Prescriptions: No Action prenat.vits,elyse,[id number] Tablet 1 tab PO DAILY albuterol sulfate [Proventil HFA] 90 mcg/actuation HFA aerosol inhaler 2 puff inhalation Q6H PRN (Reason: shortness of breath or wheezing) Qty: 8.5 0RF pantoprazole [Protonix] 40 mg tablet,delayed release (DR/EC) 40 mg PO DAILY Qty: 30 8RF ferrous sulfate 325 mg (65 mg iron) tablet 325 mg PO Q OTHER DAY Qty: 90 0RF Discharge Instructions Stand Alone Forms: BC Instructions, BC Post Vaginal Deliver Activity:: Activity as Tolerated Equipment/Supplies:: No Equipment Needed Diet:: As Tolerated Discharge Orders Discharge Orders: Discharge Order (Routine); Ordered 03/30/23 Ordered By: Valerie Maria Discharge Data Discharge Date/Time-TO BE ENTERED AT DEPARTURE: 03/30/23 19:43 OB:DS Summary Summary Vaginal Delivery Method: Spontaneaous Episiotomy Description: None Laceration Extension: N/A Contraception Discussed Contraception Discussed: Yes Contraceptive Plan: Medroxyprogesterone, [place] Gender-Baby A: Female weight: 7 lb 6.344 oz Status at Discharge Functional status at discharge: independent ambulation Overall status at discharge: patient is back to baseline Mental Status: mental status grossly normal Speech and Movement: speech and movement normal Mood: congruent mood Affect: normal affect Quality:SDOH Health Related Social Needs: No Data to Display Exam Physical Exam Vital signs: Temp Pulse Resp BP Pulse Ox 98.6 F 82 16 111/70 100 03/30/23 04:00 03/30/23 04:00 03/29/23 07:22 03/30/23 04:00 03/28/23 08:39 Vital Signs Reviewed: Yes Constitutional Constitutional: no acute distress Respiratory Exam Respiratory Exam: Normal Cardiovascular Exam Cardiovascular Exam: Normal Fundal Exam Fundus: Below Umbilicus and Firm Exam Perineum: Intact External: Present normal urethra appearance Extremities Exam Extremity Exam: Normal Back/Spine/Pelvis Exam Back Exam: Normal Skin Exam Skin Exam: Normal Psychiatric Exam Psychiatric Exam: Normal PFSH All Active Problems (Updated 03/29/23 @ 23:29 by Valerie Maria CNM) Term of female (Acute) Other specified counseling (Acute) Has health insurance with inadequate coverage of health expenses (Acute) Is on parent's health insurance, high deductible, may qualify for [place] Medicaid. Bacterial vaginosis in (Acute) [place] teeth extracted (Acute) (Acute) Cannabis use disorder, moderate, dependence (Acute) Anxiety (Chronic) Dyslexia (Acute 02/18/15) HAS IEP Medical History (Updated 03/29/23 @ 23:29 by Valerie Maria CNM) Depression Dyslexia Family History (Updated 09/22/22 @ 13:28 by Valerie Maria CNM) Mother Epilepsy Maternal Uncle Vasculitis Brother Vasculitis Social History Smoking/Tobacco Use Status: Never Smoking risk assessment performed?: Yes Alcohol Intake: never Details: Former THC user Housing: apartment Pets and animals: Yes Pets and animals: cat(s) and dog(s) Sexually active: No Current gender identity: female Do you feel safe at home: Yes Do you feel safe in your relationship?: Yes Female Reproductive History Menstrual Age of Menarche: 15 control method: none History History 1 Para 0 Hx # Term Pregnancies 0 Multiple births 0 Hx # Pregnancies 0 Ectopic pregnancies 0 AB induced 0 Hx Number of Living Children 0 AB spontaneous 0 DS: Data Vitals/I&O Vitals and I&O: Vital Signs Temperature 98.6 F 03/30/23 04:00 Temperature 98.5 F 03/28/23 04:14 Temperature Source Oral 03/30/23 04:00 Pulse 82 03/30/23 04:00 Pulse 80 03/28/23 04:14 Pulse Rhythm Regular 03/29/23 19:50 Respiratory Rate 16 03/29/23 07:22 Respiratory Depth Normal 03/29/23 07:53 Blood Pressure 111/70 03/30/23 04:00 Blood Pressure 119/77 03/28/23 04:14 Blood Pressure Mean 83 03/30/23 04:00 Pulse Oximetry 100 03/28/23 08:39 Oxygen Delivery Method Room Air 03/28/23 03:56 Oxygen Flow Rate 0 03/28/23 03:56 Pain Level 5 03/30/23 14:55 Comment See vitals flowsheet 03/28/23 03:13
[2023-03-30] MEDS: Escitalopram 10 MG TAB PO (18:40)
== END 2023-03-30 19:43 | disposition home or self-care (01) | DRG 807 ==
PROVIDERS: Admitting Provider Advanced Practice Midwife; PCP Advanced Practice Midwife; Visit Provider Advanced Practice Midwife
DX: O80 Encounter for full-term uncomplicated delivery (principal); Z37.0 Single live birth; Z3A.38 38 weeks gestation of pregnancy; O26.03 Excessive weight gain in pregnancy, third trimester; O99.344 Other mental disorders complicating childbirth; F41.9 Anxiety disorder, unspecified; O70.0 First degree perineal laceration during delivery
CPT/HCPCS: 36415; 84112; 85027; 86850; 86900; 86901; J2590

== ENCOUNTER 2023-05-22 04:25 | Emergency (ER) | payer OTHER, SELFPAY ==
[2023-05-22 04:28] VITALS: BP 107/66; PULSE 99; RESP 16; TEMP 37.3; O2SAT 98
--- NOTE | 2023-05-22 04:30 | DI.RAD_ITS ---
Exam(s) XR ELBOW LT COMPLETE EXAM: XR ELBOW LT COMPLETE CLINICAL HISTORY: fall, generalized elbow pain. TECHNIQUE: 2D digital imaging was performed. COMPARISON: No exams were available for comparison FINDINGS: 3 views There is a mildly depressed radial head fracture. Elevation of the fat pads consistent with hemarthr osis. No other fractures identified. No loose intra-articular bodies. IMPRESSION: Radial head fracture. DATA REPOSITORY: RADIATION DOSE DELIVERED:
--- NOTE | 2023-05-22 04:30 | DI.RAD_ITS ---
Exam(s) XR KNEE LT 4V AP,LAT,MIGUE,PAT EXAM: XR KNEE LT 4V AP,LAT,MIGUE,PAT CLINICAL HISTORY: fall, patella pain, concern for patella dislocatio. TECHNIQUE: 2D digital imaging was performed. COMPARISON: No exams were available for comparison FINDINGS: Four views. No evidence of fracture or prominent joint effusion. Bone density normal. No joint space narrowing. Tibial plateau intact. No prominent patellar displacement No osseous lesions. IMPRESSION: No acute osseous findings in the knee. DATA REPOSITORY: RADIATION DOSE DELIVERED:
--- NOTE | 2023-05-22 04:30 | DI.RAD_ITS ---
Exam(s) XR SHOULDER LT COMPLETE 2+V EXAM: XR SHOULDER LT COMPLETE 2+V CLINICAL HISTORY: Fall, left shoulder pain. TECHNIQUE: 2D digital imaging was performed. COMPARISON: No exams were available for comparison FINDINGS: 3 views No evidence of fracture or dislocation of the glenohumeral joint. No soft tissue calcifications. Spicer bacromial space appears unremarkable. There is slight offset of the AC joint. No clavicle fracture. No acromial fracture. No incidental osseous lesions. No adjacent rib fracture. IMPRESSION: Humeral head and glenohumeral joint unremarkable. Slight offset of the AC joint. Correlation with site of tenderness recommended. DATA REPOSITORY: RADIATION DOSE DELIVERED:
--- NOTE | 2023-05-22 04:39 | ED.GENADUL_ITS ---
Discharge Plan Disposition Patient Disposition: Home Condition: Good Discharge Details Clinical Impression: Closed fracture of left elbow, Acute pain of left knee Primary Care Provider: Valerie Maria ED Provider: Pawel Sheets Home Meds and New Rx's Prescriptions: No Action albuterol sulfate [Proventil HFA] 90 mcg/actuation HFA aerosol inhaler 2 puff inhalation Q6H PRN (Reason: shortness of breath or wheezing) Qty: 8.5 0RF Discharge Instructions Instructions: Elbow Fracture (ED), Patellar Dislocation (ED) Additional Instructions: At this time there is a concern that there is a small occult fracture that occurred in your elbow. Because of this we have splinted your elbow. Please keep the splint on and use the sling until you follow-up with orthopedics. Please take Tylenol and Motrin as needed for pain. Additionally there is concern that you may have dislocated your patella and then relocated on its own. As a temporizing agent you have been given a knee immobilizer, however you can transition to a hinged knee brace. Unfortunately we do not have one in the appropriate size tonight. If you do order one online or pick it up at your local drugstore, please make sure that it has patellar support. We have placed a referral with our privacy specialist. Please follow-up with them on an outpatient basis for further discussion of your potential Recurring patellar dislocations and your current elbow injury. If you notice any worsening of your symptoms, or any new symptoms such as vomiting, diarrhea, fever, chills, shortness of breath, chest pain, numbness, weakness, or fainting , please return immediately to the emergency department for reevaluation. Please follow up with your primary care provider as soon as possible for reassessment and reevaluation. As always, it was a pleasure participating in your medical care today. Referrals: Valerie Maria CNM [Primary Care Provider] - HPI General Date/Time Provider Initiated Documentation: 05/22/23 04:28 . HPI Narrative: Lrohn-kptk-cgahcyee 22-year-old female who is nearly 2 months at this time, presents today for evaluation of left knee and left elbow pain. 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 Today she was twisting when she suddenly developed notable pain in her knee, this caused her to fall and land on her left elbow which also developed notable pain. This happened at around 9 PM last night. She has had continued pain throughout the night, and presents currently at 4:30 AM for further assessment. Pain is made worse with movement. She did take NSAIDs before but this did not improve her symptoms. She denies any numbness or tingling in her leg but does admit to intermittent tingling in her fingers. She denies any personal or known family history of Romie-Danlos syndrome or Marfan syndrome. No other complaints at this time. No other modifying factors. Related Data Home Medications Medication Instructions Recorded Confirmed albuterol sulfate 90 mcg/actuation 2 puff inhalation Q6H PRN 01/30/22 05/22/23 aerosol inhaler (Proventil HFA) shortness of breath or wheezing #8.5 grams Previous Rx's Medication Instructions Recorded albuterol sulfate 90 mcg/actuation 2 puff inhalation Q6H PRN 01/30/22 aerosol inhaler (Proventil HFA) shortness of breath or wheezing #8.5 grams Allergies Allergy/AdvReac Type Severity Reaction Status Date / Time poison chidi extract Allergy Severe Topical Verified 05/22/23 04:46 Irritation sodium sulfite Allergy Intermediate Other (See Verified 05/22/23 04:46 Comment) General Stated Complaint: Orthopedic JAIDA: 4 Review of Systems All systems reviewed & are unremarkable except as noted in HPI and below Exam Narrative Exam Narrative: 1.Const: Well-nourished, Well-developed, appearing stated age 2.Eyes: PERRL, no conjunctival injection, and symmetrical lids. 3.ENT: Atraumatic external nose and ears. Moist MM. Neck: Symmetric, trachea midline, No thyromegaly. 4.CVS: +S1/S2, No murmurs or gallops. Peripheral pulses 2+ and equal in all extremities. Brisk capillary refill in all extremities. 5.RESP: Unlabored respiratory effort. Clear to auscultation bilaterally. No wheezes rales or rhonchi 6.GI: Soft, Nontender/Nondistended, No hepatosplenomegaly. No guarding or rebound. 7.MSK: Left elbow demonstrates tenderness over the proximal radius and ulna/olecranon. Pain with flexion and extension. Distal exam demonstrates good division operations manager strength, normal sensation all fingers, brisk capillary refill. Left shoulder demonstrates mild achiness at the AC joint, and the posterior humerus. Mild achiness with movement for internal and external rotation. Good range of motion otherwise. No focal deformity. Left knee demonstrates tenderness over the patella, tibial plateau and proximal fibula. Patella appears slightly mobile compared to the right. Pain with flexion and extension, however patient is able to actively flex and extend. Distal exam demonstrates intact pulses. No significant posterior popliteal tenderness. Normal sensation distally. Good plantar and dorsiflexion of the left foot. 8.Skin: Warm, Dry. No rashes or lesions. 9.Neuro: chain mender II-XII grossly intact. Sensation grossly intact, no focal neurologic deficits. 10.Psych: (AAO) x3. Appropriate mood and affect Course Vital Signs Vital signs: Vital Signs Temperature 37.3 C 05/22/23 04:28 Pulse 99 H 05/22/23 04:28 Respiratory Rate 16 05/22/23 04:28 Blood Pressure 107/66 05/22/23 04:28 Pulse Oximetry 98 05/22/23 04:28 Temperature 37.3 C 05/22/23 04:28 Pulse 99 H 05/22/23 04:28 Respiratory Rate 16 05/22/23 04:28 Blood Pressure 107/66 05/22/23 04:28 Pulse Oximetry 98 05/22/23 04:28 Oxygen Delivery Method Room Air 05/22/23 04:28 Oxygen Flow Rate 0 05/22/23 04:28 Medical Decision Making 22-year-old female who is nearly 2 months at this time, presents today for evaluation of left knee and left elbow pain. 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 Today she was twisting when she suddenly developed notable pain in her knee, this caused her to fall and land on her left elbow which also developed notable pain. This happened at around 9 PM last night. She has had continued pain throughout the night, and presents currently at 4:30 AM for further assessment. Pain is made worse with movement. She did take NSAIDs before but this did not improve her sy mptoms. She denies any numbness or tingling in her leg but does admit to intermittent tingling in her fingers. She denies any personal or known family history of Romie-Danlos syndrome or Marfan syndrome. No other complaints at this time. No other modifying factors. Exam demonstrates swelling and tenderness over the left elbow, concern for dislocation versus fracture. Mild achiness over the shoulder. Will get an x- ray to evaluate for orthopedic process and osseous injury. The knee itself demonstrates a slightly mobile patella. However the patient is able to flex and extend. No clinical evidence of posterior dislocation. No evidence of vascular compromise distally. Pulses intact. No bruit in the posterior popliteal space. Symptoms inconsistent with arterial injury. Concern for mild patellar dislocation which may have relocated. Will get an x-ray, treat with NSAIDs, monitor closely and reassess. 6:16 AM X-ray of the shoulder and knee do not demonstrate any evidence of fracture at this time. X-ray of the elbow shows no signs of dislocation or major fracture on my review, however there is evidence of an anterior and posterior fat pad. Concern for potential mild intra-articular injury/fracture. Patient was splinted with a sugar-tong splint. She tolerated this well. Will continue with sling as well. Unfortunately we do not have any hinged knee braces that are appropriate in size for the patient, so as a temporizing agent, she has been given a left-sided knee immobilizer for the concern for hypermobility of the patella. We will recommend purchasing a hinged knee brace at her local drugstore or online. Due to the arm injury patient is not a candidate for crutches, she is able to ambulate well with a mild limp. Will recommend continue NSAIDs for pain, and close outpatient orthopedic follow-up for her suspected patellar hypermobility and elbow injury/fracture. Discussed red flags for which to return. I have extensively reviewed the treatment plan and discharge instructions with the patient and their family. I have addressed all patient concerns at this time. The patient and family was made aware of what symptoms to monitor for that would warrant a return to the emergency department. Discussed the plan with the patient and family, they demonstrate verbal understanding and agreement with our assessment and plan at this time. The documentation in this chart was dictated using Keek dictation software. Please excuse any dictation errors. FINDINGS: Bones/joints: Normal. Soft tissues: Normal. IMPRESSION: No acute findings. Thank you for allowing us to participate in the care of your patient. Dictated and Authenticated by: Don Gruber MD 05/22/2023 6:26 AM Eastern Time ([place] & [place]) FINDINGS: Bones/joints: No visualized fracture or dislocation. Soft tissues: Elevation of the anterior and posterior fat pads, compatible with a joint effusion. IMPRESSION: Elevation of the anterior and posterior fat pads, compatible with a joint effusion. Findings suggest a nonvisualized fracture. Thank you for allowing us to participate in the care of your patient. Dictated and Authenticated by: Don Gruber MD 05/22/2023 6:28 AM Eastern Time ([place] & [place]) FINDINGS: Bones/joints: Normal. Soft tissues: Normal. IMPRESSION: No acute findings. Thank you for allowing us to participate in the care of your patient. Dictated and Authenticated by: Don Gruber MD 05/22/2023 6:27 AM Eastern Time ([place] & [place]) Quality:SDOH Health Related Social Needs: No Data to Display PFSH All Active Problems (Updated 05/22/23 @ 06:21 by Pawel Sheets DO) Acute pain of left knee (Acute) Closed fracture of left elbow (Acute) Term of female (Acute) Other specified counseling (Acute) Has health insurance with inadequate coverage of health expenses (Acute) Is on parent's health insurance, high deductible, may qualify for [place] Medicaid. Bacterial vaginosis in (Acute) [place] teeth extracted (Acute) (Acute) Cannabis use disorder, moderate, dependence (Acute) Anxiety (Chronic) Dyslexia (Acute 02/18/15) HAS IEP Medical History (Updated 05/22/23 @ 06:21 by Pawel Sheets DO) Depression Dyslexia Family History (Updated 09/22/22 @ 13:28 by Valerie Maria CNM) Mother Epilepsy Maternal Uncle Vasculitis Brother Vasculitis Social History Smoking/Tobacco Use Status: Never Smoking risk assessment performed?: Yes Alcohol Intake: never Details: Former THC user Housing: apartment Pets and animals: Yes Pets and animals: cat(s) and dog(s) Sexually active: No Current gender identity: female Do you feel safe at home: Yes Do you feel safe in your relationship?: Yes Female Reproductive History Menstrual Age of Menarche: 15 control method: none History History 1 Para 1 Hx # Term Pregnancies 1 Multiple births 0 Hx # Pregnancies 0 Ectopic pregnancies 0 AB induced 0 Hx Number of Living Children 1 AB spontaneous 0 Past Pregnancies Del. Date GA/Weeks # Preg Succ Route Wgt Sex Labor Lgth Anesth esia Location [facility] 03/28/23 38 No Yes vaginal 3354.883 g Female 8hrs 50 min marla Akins CNM Delivery Date: 03/28/23 Last Updated by: ANI Reyes;
[2023-05-22] MEDS: Acetaminophen 500 MG TAB 1000 MG PO (04:50)
[2023-05-22] MEDS: Ibuprofen 800 MG TAB PO (04:50)
--- NOTE | 2023-05-22 05:56 | NUR.NOTE ---
Assisted MD waller applying splint/sling to L elbow/arm. Pt tolerated well. +CSMTs
--- NOTE | 2023-05-22 06:26 | DI.VRAD_ITS ---
PROCEDURE INFORMATION: Exam: XR Left Shoulder Exam date and time: 05/22/2023 5:08 AM Age: 22 years old Clinical indication: Injury or trauma; Fall; Blunt trauma (contusions or hematomas); Shoulder; Left TECHNIQUE: Imaging protocol: Radiologic exam of the left shoulder. Views: 2 or more views. COMPARISON: CR XR CHEST 2V PA LATERAL 06/05/2020 3:58 PM FINDINGS: Bones/joints: Normal. Soft tissues: Normal. IMPRESSION: No acute findings. Dictated and Authenticated by: Don Gruber MD. Ordering:HAMIDA Armas MD
--- NOTE | 2023-05-22 06:27 | DI.VRAD_ITS ---
PROCEDURE INFORMATION: Exam: XR Left Knee Exam date and time: 05/22/2023 5:21 AM Age: 22 years old Clinical indication: Injury or trauma; Fall; Blunt trauma; Knee; Left TECHNIQUE: Imaging protocol: Radiologic exam of the left knee. Views: 4 or more views. COMPARISON: No relevant prior studies available. FINDINGS: Bones/joints: Normal. Soft tissues: Normal. IMPRESSION: No acute findings. Dictated and Authenticated by: Don Gruber MD. Ordering:HAMIDA Armas MD
--- NOTE | 2023-05-22 06:29 | DI.VRAD_ITS ---
PROCEDURE INFORMATION: Exam: XR Left Elbow Exam date and time: 05/22/2023 5:14 AM Age: 22 years old Clinical indication: Injury or trauma; Fall; Blunt trauma (contusions or hematomas); Elbow; Left TECHNIQUE: Imaging protocol: Radiologic exam of the left elbow. Views: 3 or more views. COMPARISON: CR XR SHOULDER LT COMPLETE 2+V 05/22/2023 5:08 AM FINDINGS: Bones/joints: No visualized fracture or dislocation. Soft tissues: Elevation of the anterior and posterior fat pads, compatible with a joint effusion. IMPRESSION: Elevation of the anterior and posterior fat pads, compatible with a joint effusion. Findings suggest a nonvisualized fracture. Dictated and Authenticated by: Don Gruber MD. Ordering:HAMIDA Armas MD
== END 2023-05-22 06:49 | disposition home or self-care (01) ==
PROVIDERS: Emergency Provider Student in an Organized Health Care Education/Training Program; PCP Advanced Practice Midwife
DX: M25.562 Pain in left knee (principal); S52.125A Nondisplaced fracture of head of left radius, initial encounter for closed fracture; W18.39XA Other fall on same level, initial encounter; Y93.89 Activity, other specified; Y92.018 Other place in single-family (private) house as the place of occurrence of the external cause
CPT/HCPCS: 99283; 73030; 73080; 73564

== ENCOUNTER 2023-05-30 15:36 | Outpatient (CLI) | payer OTHER, SELFPAY ==
--- NOTE | 2023-05-30 15:15 | DI.RAD_ITS ---
Exam(s) XR ELBOW LT COMPLETE EXAM: XR ELBOW LT COMPLETE CLINICAL HISTORY: F/U ELBOW FRACTURE. TECHNIQUE: 2D digital imaging was performed. Three views. COMPARISON: CR,XR XR ELBOW LT COMPLETE from 05/22/2023 FINDINGS: BONES: Radial head fracture again noted, unchanged in alignment. Some interval healing. No bony georgi tructive lesion is seen. JOINTS: The elbow is normally aligned. A joint effusionremains present, decreased in size.. SOFT TISSUE: Posterior soft tissue swelling. IMPRESSION: Decreased size of joint effusion. Healing fracture of the radial head. DATA REPOSITORY: RADIATION DOSE DELIVERED:
== END 2023-05-30 15:37 | disposition home or self-care (01) ==
LOC: DIORS 15:36
PROVIDERS: PCP Advanced Practice Midwife; Visit Provider Student in an Organized Health Care Education/Training Program
DX: S42.495D Other nondisplaced fracture of lower end of left humerus, subsequent encounter for fracture with routine healing (principal); X58.XXXD Exposure to other specified factors, subsequent encounter
CPT/HCPCS: 73080

== ENCOUNTER 2023-12-07 14:32 | Outpatient (CLI) | payer OTHER, SELFPAY ==
[2023-12-07 14:11] LABS: Abs Immature Grans 0.02 10^3/uL (0.0-0.06); Absolute Basophil Count 0.04 10^3/uL (0.0-0.2); Absolute Eosinophil Count 0.27 10^3/uL (0.0-0.7); Absolute Lymphocyte Count 3.38 10^3/uL (1.2-3.4); Absolute Monocyte Count 0.35 10^3/uL (0.1-0.8); Absolute Neutrophil Count 6.02 10^3/uL (1.2-6.7); Basophils % 0.4 %; Eosinophils % 2.7 %; HCT 42.1 % (36.0-46.0); HGB 14.2 g/dL (11.2-15.7); Immature Grans % 0.2 %; Lymphocytes % 33.5 %; MCH 29.3 pg (27.0-33.0); MCHC 33.7 % (32.0-36.0); MCV 87 fL (80-95); MPV 10.5 fL (8.0-11.0); Monocytes % 3.5 %; Neutrophils % 59.7 %; Platelet Count 381 10^3/uL (130-400); RBC 4.85 10^6/uL (3.93-5.22); RDW-SD 41.1 fL; WBC 10.08 10^3/uL (4.4-10.8)
[2023-12-07 14:58] LABS: ALT 22 U/L (14-59); AST 20 U/L (15-37); Albumin 4.2 g/dL (3.4-5.0); Alkaline Phosphatase 80 U/L (46-116); Anion Gap 8.4 mmol/L (3-11); BUN 7 mg/dL (7-18); Bilirubin, Total 1.06 mg/dL (0.2-1.0); CO2 26.6 mmol/L (21.0-32.0); CREATININE 0.7 mg/dL (0.55-1.02); Calcium 9.4 mg/dL (8.5-10.1); Chloride 103 mmol/L (98-107); Estimated GFR 126.11 (mL/min/1.73m2); Glucose 91 mg/dL (74-106); Potassium 3.9 mmol/L (3.5-5.1); Sodium 138 mmol/L (136-145); TSH (W/Ref FT4) 1.39 uIU/mL (0.36-3.74)
[2023-12-08 09:43] LABS: Lyme Ab w Rflx to Lyme Confirm Negative (Negative)
[2023-12-10 00:49] LABS: Anaplasma phagocytophilum Negative (Negative); B. miyamotoi PCR Negative (Negative); Babesia divergens/MO-1 Negative (Negative); Babesia duncani Negative (Negative); Babesia microti Negative (Negative); Ehrlichia chaffeensis Negative (Negative); Ehrlichia ewingii/canis Negative (Negative); Ehrlichia muris eauclairensis Negative (Negative)
== END 2023-12-07 14:33 | disposition home or self-care (01) ==
LOC: LBO 14:33
PROVIDERS: PCP Advanced Practice Midwife; Visit Provider Physician Assistant
DX: R51.9 Headache, unspecified (principal)
CPT/HCPCS: 36415; 80053; 87798; 84443; 85025; 86618

== ENCOUNTER 2024-05-20 01:14 | Emergency (ER) | payer SELFPAY ==
--- NOTE | 2024-05-20 01:16 | ED.GENADUL_ITS ---
Discharge Plan Disposition Patient Disposition: Home Condition: Improving Discharge Details Clinical Impression: Lumbar spine strain Primary Care Provider: Valerie Maria ED Provider: Joe Castillo Meds and New Rx's Prescriptions: New naproxen [Naprosyn] 500 mg tablet 500 mg PO BID Qty: 20 0RF Continued albuterol sulfate [Proventil HFA] 90 mcg/actuation HFA aerosol inhaler 2 puff inhalation Q6H PRN (Reason: shortness of breath or wheezing) Qty: 8.5 0RF Discharge Instructions Instructions: Back Muscle Strain, Muscle Strain ED Stand Alone Forms: Work Release Discharge Data Discharge Physician: Joe Castillo HPI General Date/Time Provider Initiated Documentation: 05/20/24 01:16 . HPI Narrative: Patient presents emergency department complaining of upper left and right paraspinal back pain. 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 Reports the pain is worse when she moves Related Data Home Medications ?Medication ?Instructions ?Recorded ?Confirmed albuterol sulfate 90 mcg/actuation 2 puff inhalation Q6H PRN 01/30/22 05/20/24 aerosol inhaler (Proventil HFA) shortness of breath or wheezing #8.5 grams naproxen 500 mg tablet (Naprosyn) 500 mg PO BID #20 tabs 05/20/24 Previous Rx's ?Medication ?Instructions ?Recorded albuterol sulfate 90 mcg/actuation 2 puff inhalation Q6H PRN 01/30/22 aerosol inhaler (Proventil HFA) shortness of breath or wheezing #8.5 grams naproxen 500 mg tablet (Naprosyn) 500 mg PO BID #20 tabs 05/20/24 Allergies Allergy/AdvReac Type Severity Reaction Status Date / Time poison chidi extract Allergy Severe Topical Verified 05/20/24 01:17 Irritation sodium sulfite Allergy Intermediate Other (See Verified 05/20/24 01:17 Comment) General JAIDA: 4 Review of Systems Narrative: Review of Systems: Constitutional: No fevers, chills, sweats Eye: No recent visual problems ENT: No ear pain, nasal congestion, sore throat Respiratory: No shortness of breath, cough Cardiovascular: No Chest pain, palpitations, syncope Gastrointestinal: No nausea, vomiting, diarrhea Genitourinary: No hematuria Ehsan/Lymph: Negative for bruising tendency, swollen lymph glands Endocrine: Negative for excessive thirst, excessive hunger Musculoskeletal: neck pain, joint pain, muscle pain, decreased range of motion Integumentary: No rash, pruritus, abrasions Neurologic: Alert & oriented X 4 Psychiatric: No anxiety, depression Exam Narrative Exam Narrative: Exam; vitals signs as reported above normal Constitutional; In no acute distress, afebrile General: cooperative, healthy appearing, comfortable and no acute distress HEENT: Head: normal to inspection, no palpable skull fracture and normocephalic atraumatic Eyes: : appearance normal, both eyes and all related structures EOM intact bilaterally Pupils: PERRL : conjunctiva normal Direct ophthalmoscopy: normal light reflex, normal conjunctiva, normal visual acuity Ears: Normal TM, normal external canal Nose: normal no rhinorreha Neck no JVD, supple non tender Neck: normal visual inspection, full ROM and no lymphadenopathy Chest: normal inspection of the chest Respiratory : normal respiratory effort and able to speak in complete sentences no wheezing no rales Cardio Rate: regular rate, rhythm: regular rhythm normal heart sounds S1 and S2 no murmurs, gallops, or rubs GI : normal to inspection, normal bowel sounds, soft, non tender, non distended, no organomegaly Back/Spine/ no CVA tenderness Thoracic/Lumbar Spine: Paraspinal muscle tenderness on the left on the right tender with movement Skin no rashes or lesions Neuro: patient alert oriented x 4 and no meningeal signs, Cranial Nerves: CN's II-XI intact bilaterally, Cognition: normal cognition, Speech: speech normal, Gait: normal gait, Depp tendon reflexes normal 2+ muscle strength 5/5 bilaterally Extremities, no edema, full range of motion, normal strength : normal Rectal: Medical Decision Making MDM: Summary: Patient presents emergency department with back pain most likely paraspinal muscle spasm will be discharged on Naprosyn and cyclobenzaprine she was given 12 the emergency department with improvement Data Review Analysis All the data on this patient was reviewed by me including laboratory and imaging studies as well as bedside studies performed by me Independent review of Studies Imaging Lab: Risk Stratification: Patient with paraspinal muscle spasm will be discharged home urinalysis is negative Differential Diagnosis: 1. Low back strain 2. Paraspinal muscle spasm 3. Urinary tract infection 4. Renal colic 5. Consultants: Shared disposition: Patient signed disposition will do accordingly Impression: Quality:SDOH Health Related Social Needs: No Data to Display PFSH All Active Problems (Updated 05/20/24 @ 01:44 by Joe Castillo MD) Lumbar spine strain (Acute) Dislocation of left patella (Acute) Patellar instability of left knee (Acute) Left radial head fracture (Acute) Term of female (Acute) Other specified counseling (Acute) Has health insurance with inadequate coverage of health expenses (Acute) Is on parent's health insurance, high deductible, may qualify for [place] Medicaid. Bacterial vaginosis in (Acute) [place] teeth extracted (Acute) (Acute) Cannabis use disorder, moderate, dependence (Acute) Anxiety (Chronic) Dyslexia (Acute 02/18/15) HAS IEP Medical History Depression Dyslexia Family History Mother Epilepsy Maternal Uncle Vasculitis Brother Vasculitis Social History Smoking/Tobacco Use Status: Never Smoking risk assessment performed?: Yes Alcohol Intake: current Alcohol Intake frequency: a few times a month Drug use: Occasionally Substance use type: marijuana Housing: apartment Pets and animals: Yes Pets and animals: cat(s) and dog(s) Sexually active: No Current gender identity: female Do you feel safe at home: Yes Do you feel safe in your relationship?: Yes Female Reproductive History Menstrual Age of Menarche: 15 control method: none History History 1 Para 1 Hx # Term Pregnancies 1 Multiple births 0 Hx # Pregnancies 0 Ectopic pregnancies 0 AB induced 0 Hx Number of Living Children 1 AB spontaneous 0 Past Pregnancies Del. Date GA/Weeks # Preg Succ Route Wgt Sex Labor Lgth Anesth esia Location [facility] 03/28/23 38 No Yes vaginal 3354.883 g Female 8hrs 50 min regional KHOA Akins Delivery Date: 03/28/23 Last Updated by: ANI Reyes;
[2024-05-20 01:17] VITALS: BP 114/60; PULSE 87; RESP 22; TEMP 36.6; O2SAT 99
[2024-05-20] MEDS: Ketorolac 30 MG/ML VIAL IM (01:33)
[2024-05-20 01:36] LABS: Bilirubin Negative (Negative); Blood Negative (Negative); Clarity Sl Cloudy (Clear); Glucose Negative (Negative); Ketones Negative (Negative); Leukocyte Esterase Negative (Negative); Nitrite Negative (Negative); Specific Gravity >= 1.030 (1.005-1.025); Urobilinogen 0.2 mg/dL (Up to 0.2); pH 6.5 (5-8)
[2024-05-20] MEDS: Lidocaine 5% Patch 1 PATCH TP (02:02)
== END 2024-05-20 02:05 | disposition home or self-care (01) ==
PROVIDERS: Emergency Provider Emergency Medicine Emergency Medical Services; PCP Advanced Practice Midwife
DX: S39.012A Strain of muscle, fascia and tendon of lower back, initial encounter (principal); W50.0XXA Accidental hit or strike by another person, initial encounter; Y93.F2 Activity, caregiving, lifting; Y99.0 Civilian activity done for income or pay
CPT/HCPCS: 81025; 99283; 81003; J1885

== ENCOUNTER 2024-06-26 12:30 | Outpatient (REF) | payer SELFPAY ==
--- NOTE | 2024-06-26 11:15 | PAPFT_PTH ---
PATIENT: Rose Rae LOC: [facility] U#:[id number] AGE/SX: 23/F ROOM: RE06/26/[address]: Ade Solis NP : 2000 BED: DIS: 06/26/2024 SPEC #: [id number] RECD: 06/26/24 12:43 STATUS: YONATAN REKi #: [id number] ED: 06/26/24 11:[address]: Ade Solis NP DEPT: [facility] Cytology RECD BY: Feli Mensah ENTERED: 06/26/24 12:44 SP TYPE: PAPFT OTHR DR: Valerie Maria Tissues: 1 - CX/ENDOCX FOR PAP SMEARS Procedures: PAP THIN PREP/[facility] Screening Comments: [id number]
== END 2024-06-26 12:31 | disposition home or self-care (01) ==
LOC: LBN 12:30
PROVIDERS: PCP Advanced Practice Midwife; Visit Provider Nurse Practitioner Women's Health
DX: Z12.4 Encounter for screening for malignant neoplasm of cervix (principal)
CPT/HCPCS: 88142

== ENCOUNTER 2024-12-21 14:30 | Emergency (ER) | payer SELFPAY ==
[2024-12-21 14:31] VITALS: BP 120/77; PULSE 68; RESP 16; TEMP 36.6; O2SAT 98
[2024-12-21 14:35] VITALS: BP 120/77; PULSE 68; RESP 16; TEMP 36.6; O2SAT 98
[2024-12-21 14:54] LABS: Glucose Negative (Negative)
[2024-12-21 15:01] LABS: Abs Immature Grans 0.02 10^3/uL (0.0-0.06); HCT 38.1 % (36.0-46.0); HGB 12.7 g/dL (11.2-15.7); Immature Grans % 0.2 %; MCH 28.7 pg (27.0-33.0); MCHC 33.3 % (32.0-36.0); MCV 86 fL (80-95); MPV 11.3 fL (8.0-11.0); Platelet Count 287 10^3/uL (130-400); RBC 4.42 10^6/uL (3.93-5.22); RDW 12.0 % (11.7-14.6); RDW-SD 38.0 fL; WBC 11.30 10^3/uL (4.4-10.8)
[2024-12-21] MEDS: HYDROmorphone 2 MG/ML SYR 0.5 MG IVP (15:08)
[2024-12-21] MEDS: Normal Saline Flush 10 ML SYR IVP (15:17)
[2024-12-21] MEDS: Normal Saline - Diluent 50 ML VIAL IJ (15:17)
[2024-12-21] MEDS: Omnipaque 350 MG/ML 100 ML BTL IJ (15:17)
--- NOTE | 2024-12-21 15:18 | DI.CT_ITS ---
Exam(s) CT ABDOMEN PELVIS W EXAM: CT ABDOMEN PELVIS W CLINICAL HISTORY: RLQ pain with nausea TECHNIQUE: Imaging Protocol: Axial computed tomography images with coronal and sagittal reformatted images were created and reviewed. CONTRAST MATERIAL: Intravenous: Omnipaque 350 Contrast volume:75 mL Oral: No COMPARISON: No exams were available for comparison FINDINGS: ABDOMEN: Lung Bases: No acute abnormality. Liver: Normal density. No measurable mass. The liver measures 19.4 cm long. Portal, Superior Mesenteric, and Splenic Veins: Unremarkable. Gallbladder and Biliary Tract: No radiodense calculus or dilation. Pancreas: Normal density, no abnormal calcifications or inflammatory process. Spleen: There is a mildly heterogeneous enhancement pattern of the spleen which likely is due to timing of the examination. The spleen is otherwise unremarkable. Adrenals: No masses seen. Kidneys: Normal size, contour and axis. No radiodense stones or obstructive uropathy. No masses seen. Abdominal Aorta: Abdominal portion non-dilated. Bowel: No obstruction or bowel wall thickening. There is no evidence of appendicitis. Peritoneal Cavity: There is a small amount of free fluid in the pelvis. No free air. Lymph Nodes: Within normal limits. Bones: Within normal limits for the patient's age. Soft Tissues: Unremarkable. PELVIS: Bladder: Symmetric distention, no gross wall thickening. Reproductive Organs: There are small bilateral ovarian follicles. The largest is on the right ovary and measures 2 x 1.5 cm. The uterus is grossly unremarkable. Lymph Nodes: Within normal limits. Bones: Within normal limits for the patient's age. IMPRESSION: 1. There is no evidence of appendicitis. 2. Small amount of free fluid in the pelvis which is likely physiologic. 3. No abscess or pneumoperitoneum. 4. No CT evidence of cholelithiasis or obstructive uropathy. RADIATION DOSE DELIVERED: 508.79mGy.cm Total DLP DATA REPOSITORY: All CT scans at this facility are submitted to the National Radiology Data Registry (NRDR) Dose Index Registry (DIR) with the [employer] (ACR). RADIATION OPTIMIZATION: All CT scans at this facility use at least one of these dose optimization techniques: automated exposure control; mA and/or kV adjustment per patient size (includes targeted exams where dose is matched to clinical indication); or iterative reconstruction.
--- NOTE | 2024-12-21 15:22 | ED.GENADUL_ITS ---
Discharge Plan Disposition Patient Disposition: Home Condition: Stable Discharge Details Clinical Impression: Right lower quadrant abdominal pain Primary Care Provider: None,None ED Provider: Giselle Osorio Home Meds and New Rx's Prescriptions: No Action albuterol sulfate [Proventil HFA] 90 mcg/actuation HFA aerosol inhaler 2 puff inhalation Q6H PRN (Reason: shortness of breath or wheezing) Qty: 8.5 0RF norethindrone-e.estradiol-iron [Junel FE 1.5/30 (28)] 1.5 mg-30 mcg (21)/75 mg (7) tablet 1 tab PO DAILY Qty: 84 4RF naproxen [Naprosyn] 500 mg tablet 500 mg PO BID Qty: 20 0RF Discharge Instructions Instructions: Abdominal Pain, Adult ED Additional Instructions: You were seen in the emergency department today for evaluation of abdominal pain. In our department he had a full physical examination, had reassuring laboratory studies, and a CT scan that did not show any sign of appendicitis, problems with your bowels, or large ovarian cysts. Unfortunately, we are sometimes unable to determine the cause of symptoms in the emergency department. You received medications for management of pain and I do recommend that you continue to maintain good hydration and nutrition at home. Please use therapeutic dosing of Tylenol (acetaminophen) & Advil (ibuprofen) in an alternating fashion as follows: Take 1000mg of Tylenol every 6 hours without missing doses- that is 4 times per day. [place] in between the Tylenol doses, take 600mg of Advil also on a 6 hour schedule, that is also 4 times per day. With this strategy, you will be taking something for fever/pain as often as every 3 hours. The daily maximum dosing of Tylenol is 4000mg, and the daily maximum dosing of Advil is 2400mg. Please note that some common cold medications & prescription pain medications may contain acetaminophen and you need to read OTC drug labels and factor that in to maximum daily doses. I have provided you with a referral to establish with a primary care provider. I do recommend that you monitor your symptoms, if you develop sudden or severe change or worsening of your pain, nausea or vomiting that prevents you from eating or drinking, fever or chills, or any other symptoms that cause you concern you should return to the emergency department to be reevaluated. Please follow-up with your primary care provider in the next few days to discuss this visit and any symptoms that change, worsen, or persist. Thank you for allowing us to be part of your care. Stand Alone Forms: Work Release Discharge Data Discharge Date/Time-TO BE ENTERED AT DEPARTURE: 12/21/24 16:44 HPI General Mode of arrival: ambulatory . Date/Time Provider Initiated Documentation: 12/21/24 14:30 . Limitations to Documentation: no limitations . Information obtained by: patient, family and old records reviewed . HPI Narrative: This is a 24-year-old female patient with a past medical history significant for anxiety presenting for evaluation of sudden right lower quadrant abdominal pain. 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 She feels like she is very cold, states that she has been able to eat and drink, has not had any vomiting but did feel nauseated at the onset of the pain. She reports that she is not experiencing any dysuria, diarrhea, had a normal stool this morning. States that she is not experiencing any vaginal discharge, uses OCPs for prevention, last menstrual cycle 3 weeks ago. She took Tylenol and ibuprofen for management of this pain. Related Data Home Medications ?Medication ?Instructions ?Recorded ?Confirmed albuterol sulfate 90 mcg/actuation 2 puff inhalation Q 6H PRN 01/30/22 12/21/24 aerosol inhaler (Proventil HFA) shortness of breath or wheezing #8.5 grams naproxen 500 mg tablet (Naprosyn) 500 mg PO BID #20 ta bs 05/20/24 12/21/24 norethindrone 1.5 mg-ethinyl 1 tab PO DAILY #84 tabs 0 06/26/24 12/21/24 estradiol 30 mcg(21)/iron 75 mg(7) tablet (Junel FE (28)) Previous Rx's ?Medication ?Instructions ?Recorded albuterol sulfate 90 mcg/actuation 2 puff inhalation Q 6H PRN 01/30/22 aerosol inhaler (Proventil HFA) shortness of breath or wheezing #8.5 grams naproxen 500 mg tablet (Naprosyn) 500 mg PO BID #20 ta bs 05/20/24 norethindrone 1.5 mg-ethinyl 1 tab PO DAILY #84 tabs 0 06/26/24 estradiol 30 mcg(21)/iron 75 mg(7) tablet (Junel FE (28)) Allergies Allergy/AdvReac Type Severity Reaction Status Date / Time poison chidi extract Allergy Severe Topical Verified 12/21/24 14:34 Irritation sodium sulfite Allergy Intermediate Other (See Verified 12/21/24 14:34 Comment) General Stated Complaint: Abd Prob JAIDA: 3 Exam Narrative Exam Narrative: Gen: Awake and alert, in no apparent distress HEENT: Non-icteric sclera Neck: Supple Lungs: No apparent respiratory distress, normal respiratory effort. CV: Appears well perfused, heart with regular rate and rhythm, strong distal pulses Abdomen: Non-distended, soft, tender to palpation in the right lower quadrant without rigidity, no guarding, the patient does state that rebound tenderness slightly worse than palpation. No overlying skin changes MSK: Moves 4 extremities without apparent limitation in ROM Skin: Visualized skin without rashes, cyanosis. Neuro: Normal Gait, no obvious focal deficits or facial asymmetry. Speaks in full, clear sentences. Psych: Appropriate for situation. Course Vital Signs Vital signs: Vital Signs Temperature 36.6 C 12/21/24 14:31 Pulse 68 12/21/24 14:31 Respiratory Rate 16 12/21/24 14:31 Blood Pressure 120/77 12/21/24 14:31 Pulse Oximetry 98 12/21/24 14:31 Temperature 36.6 C 12/21/24 14:35 Pulse 68 12/21/24 14:35 Respiratory Rate 16 12/21/24 14:35 Blood Pressure 120/77 12/21/24 14:35 Pulse Oximetry 98 12/21/24 14:35 Pain Level 7 12/21/24 14:35 Lab/Test Results Lab/Test Results: Laboratory Tests Range/Units 12/21/24 12/21/24 12/21/24 14:30 14:38 14:45 WBC (4.4-10.8) 10^3/uL 11.30 H RBC (3.93-5.22) 10^6/uL 4.42 Hgb (11.2-15.7) g/dL 12.7 Hct (36.0-46.0) % 38.1 MCV (80-95) fL 86 MCH (27.0-33.0) pg 28.7 MCHC (32.0-36.0) % 33.3 RDW (11.7-14.6) % 12.0 Plt Count (130-400) 10^3/uL 287 MPV (8.0-11.0) fL 11.3 H Immature Gran % % 0.2 Neutrophils % % 55.8 Lymphocytes % % 35.6 Monocytes % % 5.2 Eosinophils % % 2.7 Basophils % % 0.5 Nucleated RBC % (0.0-0.3) % 0.0 Absolute Neutrophils (1.2-6.7) 10^3/uL 6.31 Absolute Lymphocytes (1.2-3.4) 10^3/uL 4.02 H Absolute Monocytes (0.1-0.8) 10^3/uL 0.59 Absolute Eosinophils (0.0-0.7) 10^3/uL 0.31 Absolute Basophils (0.0-0.2) 10^3/uL 0.06 Serum HCG, Qual Cancelled Urine Color (Yellow) Yellow Urine Clarity (Clear) Sl Cloudy Urine pH (5-8) 6.0 Ur Specific [place] (1.005-1.025) 1.025 Urine Protein (Neg-Trace) mg/dL Negative Urine Ketones (Negative) mg/dL Trace H Urine Blood (Negative) Negative Urine Nitrite (Negative) Negative Urine Bilirubin (Negative) Negative Urine Urobilinogen (Up to 0.2) mg/dL 0.2 Ur Leukocyte Esterase (Negative) Negative Urine Glucose (Negative) mg/dL Negative POC- Test(urine) Negative Medical Decision Making This is a 24-year-old female patient presenting for approximately 1 hour of right lower quadrant abdominal pain. My differential includes, but is not limited to, appendicitis, ovarian cyst, also considered gastritis/PUD, gastroenteritis, pancreatitis, cholecystitis and gallbladder pathology, hepatitis, diverticulitis, small bowel obstruction. Considered urinary pathology including UTI, nephrolithiasis. Considered mesenteric ischemia, aortic pathology, though this is less concerning based on the patient's history and physical exam. Considered ectopic , PID/TOA, ovarian torsion. Given that the patient has taken both Tylenol and ibuprofen recently, I will provide her with a dose of Dilaudid, and obtain labs to include CBC, CMP, magnesium, lipase, and urinalysis. The [id number] screen was negative. We will obtain a CT abdomen and pelvis to better characterize any abnormalities. -I independently interpreted the laboratory studies, which show no significant leukocytosis, anemia, or thrombocytopenia. The chemistry panel is without evidence of electrolyte abnormality, kidney dysfunction, or liver injury. Lipase is low, urinalysis noninfectious. I reviewed the patient's CT scan, as well as the radiology report. There is no evidence of appendicitis, large ovarian cysts or reported evidence of torsion, or other concerning findings explain the patient's symptoms. She does have a normal right ovarian follicle and some physiologic free fluid in her pelvis. I reevaluated the patient, her symptoms have improved, and her abdominal examination is benign. She has been able to tolerate oral intake. I considered pathologies including early appendicitis, mittelschmerz pain given the timing of her menstrual cycle (due to start her period in 1-1/2 weeks). I have a lower concern for ovarian torsion given the lack of large cyst, and the quality of the patient's pain, which is not sharp, cyclical, or unremitting. I counseled the patient to monitor her symptoms, as development of associated symptoms or change in her abdominal tenderness may warrant repeat evaluation. I provided her with a referral to establish with a primary care doctor. At this time, the patient has had a full medical evaluation and is safe for discharge to home. They are hemodynamically stable, ambulatory, and tolerating PO. They are understanding of the follow-up plan and return precautions. They left our facility without incident. Giselle Osorio MD [facility] All Active Problems (Updated 12/21/24 @ 16:15 by Giselle Osorio MD) Right lower quadrant abdominal pain (Acute) Dislocation of left patella (Acute) Patellar instability of left knee (Acute) Left radial head fracture (Acute) Has health insurance with inadequate coverage of health expenses (Acute) Is on parent's health insurance, high deductible, may qualify for [place] Medicaid. [place] teeth extracted (Acute) Cannabis use disorder, moderate, dependence (Acute) Anxiety (Chronic) Dyslexia (Acute 02/18/15) HAS IEP Medical History Depression Dyslexia Family History Mother Epilepsy Maternal Uncle Vasculitis Brother Vasculitis Social History Smoking/Tobacco Use Status: Never Smoking risk assessment performed?: Yes Alcohol Intake: current Alcohol Intake frequency: a few times a month Drug use: Occasionally Substance use type: marijuana Housing: apartment Pets and animals: Yes Pets and animals: cat(s) and dog(s) Sexually active: No Current gender identity: female Do you feel safe at home: Yes Do you feel safe in your relationship?: Yes Female Reproductive History Menstrual Age of Menarche: 15 control method: pills (POP) History History 1 Para 1 Hx # Term Pregnancies 1 Multiple births 0 Hx # Pregnancies 0 Ectopic pregnancies 0 AB induced 0 Hx Number of Living Children 1 AB spontaneous 0 Past Pregnancies Del. Date GA/Weeks # Preg Succ Route Wgt Sex Labor Lgth Anesth esia Location [facility] 03/28/23 38 No Yes vaginal 3354.883 g Female 8hrs 50 min regional [facility] Delivery Date: 03/28/23 Last Updated by: ANI Reyes;
[2024-12-21 15:31] LABS: ALT 28 U/L (14-59); AST 20 U/L (15-37); Albumin 4.0 g/dL (3.4-5.0); Alkaline Phosphatase 41 U/L (46-116); Anion Gap 9.6 mmol/L (3-11); BUN 15 mg/dL (7-18); Bilirubin, Total 0.7 mg/dL (0.2-1.0); CO2 23.4 mmol/L (21.0-32.0); Calcium 8.8 mg/dL (8.5-10.1); Chloride 105 mmol/L (98-107); Estimated GFR 106.77 (mL/min/1.73m2); Glucose 95 mg/dL (74-106); Potassium 3.7 mmol/L (3.5-5.1); Sodium 138 mmol/L (136-145); Total Protein 7.7 g/dL (6.4-8.2)
[2024-12-21 15:38] LABS: Lipase 31 U/L (<78); Magnesium 2.0 mg/dL (1.8-2.4)
[2024-12-21 16:42] VITALS: BP 113/70; PULSE 71; O2SAT 98
== END 2024-12-21 16:44 | disposition home or self-care (01) ==
PROVIDERS: General Practice; Emergency Provider Emergency Medicine
DX: R10.31 Right lower quadrant pain (principal)
CPT/HCPCS: 99283; 99285; 96374; 81025; 36415; 80053; 83690; 74177; 81003; 83735; 84703; 85025; J1171; J3490